=== PATIENT | male | born 1985 ===

== ENCOUNTER → 2020-07-12 16:07 | Outpatient (BNVA) | payer OTHER, SELFPAY | PROVIDERS: Visit Provider Nurse Practitioner Psychiatric/Mental Health | DX: F11.20 Opioid dependence, uncomplicated (principal); F14.90 Cocaine use, unspecified, uncomplicated | CPT/HCPCS: 80305; 99212 ==

== ENCOUNTER → 2020-07-19 16:21 | Outpatient (BNVA) | payer OTHER, SELFPAY | PROVIDERS: Visit Provider Nurse Practitioner Psychiatric/Mental Health | DX: F11.99 Opioid use, unspecified with unspecified opioid-induced disorder (principal) | CPT/HCPCS: 99212 ==

== ENCOUNTER → 2020-07-26 16:26 | Outpatient (BNVA) | payer OTHER, SELFPAY | PROVIDERS: Visit Provider Nurse Practitioner Psychiatric/Mental Health | DX: Z76.89 Persons encountering health services in other specified circumstances (principal) ==

== ENCOUNTER → 2020-08-02 16:23 | Outpatient (BNVA) | payer OTHER, SELFPAY | PROVIDERS: Visit Provider Nurse Practitioner Psychiatric/Mental Health | DX: Z76.89 Persons encountering health services in other specified circumstances (principal) ==

== ENCOUNTER → 2020-08-20 15:38 | Outpatient (BNVA) | payer OTHER, SELFPAY | PROVIDERS: Visit Provider Nurse Practitioner Psychiatric/Mental Health | DX: F11.99 Opioid use, unspecified with unspecified opioid-induced disorder (principal) | CPT/HCPCS: 80305; 99211 ==

== ENCOUNTER → 2020-08-30 16:03 | Outpatient (BNVA) | payer OTHER, SELFPAY | PROVIDERS: Visit Provider Nurse Practitioner Psychiatric/Mental Health | DX: Z76.89 Persons encountering health services in other specified circumstances (principal) ==

== ENCOUNTER → 2020-09-13 16:19 | Outpatient (BNVA) | payer OTHER, SELFPAY | PROVIDERS: Visit Provider Nurse Practitioner Psychiatric/Mental Health | DX: Z76.89 Persons encountering health services in other specified circumstances (principal) ==

== ENCOUNTER 2020-09-26 03:25 | Emergency (ER) | payer OTHER, SELFPAY ==
[2020-09-26 04:03] VITALS: BP 126/93; PULSE 64; RESP 16; TEMP 36.9; O2SAT 98; BMI 21.6
--- NOTE | 2020-09-26 04:11 | ED_ITS ---
HPI - General Adult General Chief complaint: Headache Stated complaint: Congested/Headache Time Seen by Provider: 09/26/20 04:03 Source: patient Mode of arrival: ambulatory Limitations: no limitations History of Present Illness HPI narrative: Patient comes emergency room complaining of a headache and feeling congested since yesterday. Patient denies fever chills, no body aches. Patient requesting a spray for his nose complaint: Congestion Related Data Previous Rx's Medication Instructions Recorded buprenorphine 8 mg-naloxone 2 mg 1 film SUBLINGUAL DAILY #14 ea 09/13/20 sublingual film fluticasone propionate [Aller-Rey] 1 spray INTRANASAL Q12H #9.9 ml 09/26/20 Allergies Allergy/AdvReac Type Severity Reaction Status Date / Time No Known Allergies Allergy Verified 09/26/20 04:03 Review of Systems Review of Systems: Constitutional : No Weight loss, No Fever, No Chills, No Night Sweats, No Fatigue, No Malaise ENT/Mouth : No Hearing loss, No Ear Pain, complaining of Nasal Congestion, No Sinus Pain, No Hoarseness, No sore throat, No Rhinorrhea, No Swallowing Difficulty Eyes: No Eye Pain, No Swelling, No Redness, No Foreign Body, No Discharge, No Vision Changes Cardiovascular : No Chest Pain, No SOB, No Dyspnea on Exertion, No Orthopnea, No Edema, No Palpitations Respiratory : No Cough, No Sputum, No Wheezing, No Smoke Exposure, No Dyspnea Gastrointestinal : No Nausea, No Vomiting, No Diarrhea, No Constipation, No abdominal Pain, No Hematochezia, No Melena Genitourinary : no irregular bleeding, No Dysuria, No Urinary Frequency, No Hematuria, No Urinary Incontinence, No Urgency, No Flank Pain, No Urinary Flow Changes, No Hesitancy Musculoskeletal : No joint pain, No Myalgias, No Joint Swelling Skin : No Skin Lesions, No rash Neuro : No Weakness, No Numbness, No Paresthesias, No Loss of Consciousness, No Dizziness, complaining of Headache Psych : No Anxiety/Panic, No Depression, No SI/HI/AH/VH, No Social Issues, Heme/Lymph: No Bruising, No Bleeding,No Lymphadenopathy Endocrine : No Polyuria, No Polydipsia, No Temperature Intolerance [facility] Past Medical History Medical History (Updated 09/26/20 @ 04:16 by Adelia Ballard MD) Substance abuse Surgical History (Updated 07/09/20 @ 09:21 by MARTIN Gregory) History of nasal surgery Family History Family History (Updated 07/09/20 @ 09:21 by MARTIN Gregory) Father Medical history unknown Mother No problems noted. Physical Exam Vital Signs: Appearance: Alert. Oriented X3. No acute distress. Eyes: Pupils equal, round and reactive to light. Bilateral conjunctivae injection, strong smell of marijuana per staff ENT: Pharynx normal. Patient sounds congested Neck: Normal inspection. Neck supple. No lymph nodes noted. No crepitus CVS: Normal heart rate and rhythm. Pulses normal. Normal S1 and S2 Respiratory: No respiratory distress. Breath sounds normal. No Wheezing. No rales Abdomen: Soft and nontender. No rigidity. No distention. good BS x4 Skin: Skin warm and dry. Normal skin color. Normal skin turgor. Extremities: No lower extremity edema. No lower extremity edema. No Lacerations. No Rash Neuro: Oriented X 3. No motor deficit. No sensory deficit. Moving all extermities. No slurred speech. Course Course Course Narrative: Patient was tested for COVID-19, results pending. Patient will follow-up with his primary care physician. Patient has no fever, not tachycardic. Discharge Plan Discharge Clinical Impression: Congestion of nasal sinus Patient Disposition: Home, Self-Care Instructions: Cold Symptoms (ED) Additional Instructions: You were tested for COVID-19, you will receive a phone call in approximately 72 hours if your results are positive. In the meantime, please stay at home self isolated until you get results. Please follow-up with your primary care physician tomorrow. If you have any worsening or new symptoms, please return to the emergency room or call 911 Prescriptions: New fluticasone propionate [Aller-Rey] 50 mcg/actuation spray,suspension 1 spray intranasal Q12H Qty: 9.9 RF: 0 No Action buprenorphine-naloxone [Suboxone] 8-2 mg film 1 film sublingual DAILY Qty: 14 RF: 0
== END 2020-09-26 04:42 | disposition home or self-care (01) ==
LOC: HO.ED 04:24
PROVIDERS: Emergency Provider Emergency Medicine
DX: R09.81 Nasal congestion (principal); Z20.822 Contact with and (suspected) exposure to COVID-19; F19.10 Other psychoactive substance abuse, uncomplicated; Z79.899 Other long term (current) drug therapy
CPT/HCPCS: 36415; 99283; U0003

== ENCOUNTER → 2020-09-27 15:52 | Outpatient (BNVA) | payer OTHER, SELFPAY | PROVIDERS: Visit Provider Nurse Practitioner Psychiatric/Mental Health | DX: Z76.89 Persons encountering health services in other specified circumstances (principal) ==

== ENCOUNTER → 2020-10-11 17:07 | Outpatient (BNVA) | payer OTHER, SELFPAY | PROVIDERS: Visit Provider Nurse Practitioner Psychiatric/Mental Health | DX: Z13.89 Encounter for screening for other disorder (principal) | CPT/HCPCS: 99212 ==

== ENCOUNTER 2020-10-12 15:23 | Emergency (ER) | payer OTHER, SELFPAY ==
[2020-10-12 15:34] VITALS: BP 119/60; BP 155/93; PULSE 82; PULSE 94; RESP 18; TEMP 36.4; O2SAT 100; O2SAT 99; BMI 22.3
--- NOTE | 2020-10-12 15:38 | XR_ITS ---
EXAMINATION: XR ANKLE, RIGHT CLINICAL INFORMATION: Right ankle pain status post work injury. COMPARISON: None TECHNIQUE: AP, lateral, and mortise views of the right ankle. FINDINGS: There is no acute fracture or dislocation. The ankle joint and mortise are intact. The tarsal bones are normally aligned. A punctate radiopaque density overlies the plantar soft tissues laterally at the level of the anterior calcaneus. XR/XR ankle RT min 3V IMPRESSION: 1. No acute right ankle osseous abnormality. 2. Probable punctate soft tissue radiopaque foreign body in the lateral plantar soft tissues.
--- NOTE | 2020-10-12 15:38 | XR_ITS ---
EXAMINATION: XR FOOT, RIGHT CLINICAL INFORMATION: Right foot pain status post work injury. COMPARISON: None TECHNIQUE: AP, lateral, and oblique views of the right foot. FINDINGS: There is a nondisplaced fracture of the base of the fifth metatarsal. The remainder the digits are intact. The tarsal bones are normally aligned. Several punctate radiopaque densities overlie the plantar soft tissues at the level of the distal metatarsals medially. XR/XR foot RT min 3V IMPRESSION: 1. Acute, nondisplaced fracture of the base of the fifth metatarsal. 2. Punctate radiopaque densities overlying the plantar soft tissues likely represent foreign bodies.
--- NOTE | 2020-10-12 16:44 | ED_ITS ---
HPI - Extremity Injury (Lower) General Chief Complaint: Extremity Injury, Lower Stated Complaint: ankle pain Time Seen by Provider: 10/12/20 15:37 Source: patient and EMS Mode of arrival: EMS Limitations: no limitations History of Present Illness HPI Narrative: 35yoM presenting to the ED via EMS after having a work related injury where he was working and a forklift impacted his right hip making him lose his balance and fall on the floor then the forklift ran over his right ankle/foot and since then has been having pain. Denies any head injury or loss of consciousness or any other injuries complaints or concerns at this time. Related Data Previous Rx's Medication Instructions Recorded fluticasone propionate [Aller-Rey] 1 spray INTRANASAL Q12H #9.9 ml 09/26/20 hydroxyzine HCl 25 mg tablet 25 mg PO BID PRN #30 tab 09/27/20 buprenorphine 8 mg-naloxone 2 mg 1 film SUBLINGUAL DAILY #21 ea 10/11/20 sublingual film acetaminophen [Tylenol Extra 1,000 mg PO QID PRN #14 tab 10/12/20 Strength] ibuprofen 800 mg PO Q8H PRN #14 tab 10/12/20 oxycodone 5 mg PO BID PRN #14 tab 10/12/20 Allergies Allergy/AdvReac Type Severity Reaction Status Date / Time No Known Allergies Allergy Verified 09/26/20 04:03 Review of Systems Review of Systems: Constitutional : No Fever, No Chills ENT/Mouth : No Ear Pain, No Hoarseness, No sore throat Eyes: No Eye Pain, No Swelling, No Redness, No Foreign Body Cardiovascular : No Chest Pain, No SOB Respiratory : No Cough, No Dyspnea Gastrointestinal : No Nausea, No Vomiting, No Diarrhea, No abdominal Pain Genitourinary : No Dysuria, No Hematuria Musculoskeletal : + joint pain/swelling, No Myalgias Skin : No Skin lacerations, No rash Neuro : No Weakness, No Numbness, No Paresthesias, No Loss of Consciousness, No Dizziness, No Headache Psych : No Anxiety/Panic, No Depression Heme/Lymph: no easy bruising, no Lymphadenopathy Endocrine : No Polyuria, No Polydipsia Yes all other systems are reviewed and are negative [facility] Past Medical History Attestation statement: The following information was validated with the patient. Medical History Substance abuse Surgical History History of nasal surgery Family History Family History Father Medical history unknown Mother No problems noted. Social History Social History Alcohol intake: never Smoking Status: Never smoker Use of substances other than those prescribed or required for medical reasons: No Advance Directives: No Advance Directives Information Provided: Yes Physical Exam Vital Signs: Vital Signs: Last Vital Signs Temp 97.5 F 10/12/20 15:34 Pulse 82 10/12/20 15:34 Resp 18 10/12/20 15:34 BP 119/60 10/12/20 15:34 Pulse Ox 100 10/12/20 15:34 Body Mass Index 22.3 vital signs have been reviewed as normal and appeared to be correct. Blood pressure normal. Heart rate normal. Respiration rate normal. Temperature normal. Oxygen saturation normal. Appearance: Alert. Oriented X3. No acute distress. Head: Normal external exam. Normocephalic. Atraumatic. Eyes: PERRLA. EOMI. Conjunctiva and sclera normal. Eyelids normal. ENT: Pharynx normal. Uvula midline. Moist mucous membranes. Neck: Normal inspection. Neck supple. FROM. No adenopathy. Thyroid Normal. No meningeal signs. No neck mass noted. CVS: Normal heart rate and rhythm. Heart sound normal. No murmurs noted. Pulses normal throughout. Respiratory: No respiratory distress. Painless inspiration. Breath sounds normal. No wheezes/rales/rhonchi noted. Chest nontender. No accessory muscle usage noted or decreased air movement noted. Back: Full range of motion noted. Skin: Skin warm and dry. Normal skin color. Normal skin turgor. No rashes/lesions/lacerations noted. Extremities: Patient with moderate tenderness to palpation to right ankle/right foot at the lateral aspect with ecchymosis and abrasion noted. Patient has full range of motion of the ankle. No laxity noted. Moderate tenderness to palpation to the base of the 5th metatarsal. No foreign bodies noted. Achilles tendon within normal limits not ruptured. Otherwise all other Extremities exhibit normal range of motion and nontender. Neuro: Oriented X 3. No motor deficit. No sensory deficit. Reflexes normal. Course Course Course Narrative: 35yoM presenting to the ED via EMS after having a work related injury where he was working and a forklift impacted his right hip making him lose his balance and fall on the floor then the forklift ran over his right ankle/foot and since then has been having pain. - x-ray of right foot revealed acute nondisplaced fracture of the base of the 5th metatarsal. They also reported a Punctate radiopaque densities overlying the plantar soft tissues likely represent foreign bodies. - therefore printed out the x-ray reports and handed to the patient although on exam patient does not have abrasions or any obvious injury where the radial plaque densities are noted patient reports this is probably from when he was younger. - x-ray of right ankle within normal limits no acute processes noted. - will place in a ortho boot provide crutches give 100 mg of Motrin and 5 mg of oxycodone and give a referral to Orthopedics and instructions to return if any new or worsening symptoms along with a work note. Patient understands agrees the plan. Procedures Orthopedic Splinting/Casting Injury #1: Side: right Lower Extremity Injury Location: ankle and foot Lower Extremity Immobilizer: boot orthosis Other Orthopedic Equipment: crutches MDM - Extremity Injury (Lower) Medical Records Attestation: I reviewed the patient's medical records. Imaging Data Right ankle/foot x-ray: Attestation: I personally reviewed and interpreted this imaging study as follows: Radiologist's impression: FINDINGS: There is no acute fracture or dislocation. The ankle joint and mortise are intact. The tarsal bones are normally aligned. A punctate radiopaque density overlies the plantar soft tissues laterally at the level of the anterior calcaneus. XR/XR ankle RT min 3V IMPRESSION: 1. No acute right ankle osseous abnormality. 2. Probable punctate soft tissue radiopaque foreign body in the lateral plantar soft tissues. FINDINGS: There is a nondisplaced fracture of the base of the fifth metatarsal. The remainder the digits are intact. The tarsal bones are normally aligned. Several punctate radiopaque densities overlie the plantar soft tissues at the level of the distal metatarsals medially. XR/XR foot RT min 3V IMPRESSION: 1. Acute, nondisplaced fracture of the base of the fifth metatarsal. 2. Punctate radiopaque densities overlying the plantar soft tissues likely represent foreign bodies. Discharge Plan Discharge Clinical Impression: Ankle sprain and strain, Work related injury Abrasion of ankle Qualifiers: Encounter type: initial encounter Laterality: right Qualified Code(s): S90.511A - Abrasion, right ankle, initial encounter Ankle bruise Qualifiers: Encounter type: initial encounter Laterality: right Qualified Code(s): S90.01XA - Contusion of right ankle, initial encounter Superficial bruising of foot Qualifiers: Encounter type: initial encounter Laterality: right Qualified Code(s): S90.31XA - Contusion of right foot, initial encounter Fracture of fifth metatarsal bone Qualifiers: Encounter type: initial encounter Fracture type: closed Fracture alignment: nondisplaced Laterality: right Qualified Code(s): S92.354A - Nondisplaced fracture of fifth metatarsal bone, right foot, initial encounter for closed fracture Foreign body in foot Qualifiers: Encounter type: initial encounter Laterality: right Qualified Code(s): S90.851A - Superficial foreign body, right foot, initial encounter Patient Disposition: Home, Self-Care Instructions: Crutch Instructions (ED), Foot Fracture in Adults (ED), Walking Boot (ED) Prescriptions: New ibuprofen 800 mg tablet 800 mg PO Q8H PRN (Reason: pain) Qty: 14 RF: 0 acetaminophen [Tylenol Extra Strength] 500 mg tablet 1,000 mg PO QID PRN (Reason: fever or pain) Qty: 14 RF: 0 oxycodone 5 mg tablet 5 mg PO BID PRN (Reason: pain) Qty: 14 RF: 0 No Action hydroxyzine HCl 25 mg tablet 25 mg PO BID PRN (Reason: anxiety) Qty: 30 RF: 1 fluticasone propionate [Aller-Rey] 50 mcg/actuation spray,suspension 1 spray intranasal Q12H Qty: 9.9 RF: 0 buprenorphine-naloxone [Suboxone] 8-2 mg film 1 film sublingual DAILY Qty: 21 RF: 0 Referrals: Jyoti Villalba MD [Physician] - 1 week Stand Alone Forms: Work/School Release Print Language: Nepali
[2020-10-12] MEDS: oxyCODONE HCl Immed Release 5 MG TABLET PO (17:18)
== END 2020-10-12 17:47 | disposition home or self-care (01) ==
PROVIDERS: Emergency Provider Emergency Medicine
DX: S92.354A Nondisplaced fracture of fifth metatarsal bone, right foot, initial encounter for closed fracture (principal); S90.511A Abrasion, right ankle, initial encounter; S90.01XA Contusion of right ankle, initial encounter; S90.31XA Contusion of right foot, initial encounter; S90.851A Superficial foreign body, right foot, initial encounter; M79.671 Pain in right foot; M25.551 Pain in right hip; W31.82XA Contact with other commercial machinery, initial encounter; Y93.89 Activity, other specified; Y92.69 Other specified industrial and construction area as the place of occurrence of the external cause; Y99.0 Civilian activity done for income or pay; Z23 Encounter for immunization; Z79.899 Other long term (current) drug therapy
CPT/HCPCS: 29505; 73610; 73630; 99283; 99284

== ENCOUNTER → 2020-10-16 11:21 | Outpatient (BNVA) | payer OTHER, SELFPAY | PROVIDERS: Visit Provider Physician Assistant | DX: Z13.89 Encounter for screening for other disorder (principal) | CPT/HCPCS: 99202 ==

== ENCOUNTER → 2020-10-23 13:41 | Outpatient (BNVA) | payer OTHER, SELFPAY | PROVIDERS: Visit Provider Physician Assistant | DX: Z13.89 Encounter for screening for other disorder (principal) | CPT/HCPCS: 99212 ==

== ENCOUNTER → 2020-10-30 13:21 | Outpatient (BNVA) | payer OTHER, SELFPAY | PROVIDERS: PCP Internal Medicine; Visit Provider Physician Assistant | DX: Z13.89 Encounter for screening for other disorder (principal) | CPT/HCPCS: 99212 ==

== ENCOUNTER → 2020-11-01 14:39 | Outpatient (BNVA) | payer OTHER, SELFPAY | PROVIDERS: PCP Internal Medicine; Visit Provider Nurse Practitioner Psychiatric/Mental Health | DX: Z79.899 Other long term (current) drug therapy (principal) ==

== ENCOUNTER → 2020-11-06 13:05 | Outpatient (BNVA) | payer OTHER, SELFPAY | PROVIDERS: PCP Internal Medicine; Visit Provider Physician Assistant | DX: Z13.89 Encounter for screening for other disorder (principal) | CPT/HCPCS: 99212 ==

== ENCOUNTER → 2020-11-22 15:09 | Outpatient (BNVA) | payer OTHER, SELFPAY | PROVIDERS: PCP Internal Medicine; Visit Provider Nurse Practitioner Psychiatric/Mental Health | DX: F11.99 Opioid use, unspecified with unspecified opioid-induced disorder (principal); F14.10 Cocaine abuse, uncomplicated | CPT/HCPCS: 80305; 99212 ==

== ENCOUNTER → 2020-11-23 11:32 | Outpatient (BNVA) | payer OTHER, SELFPAY | PROVIDERS: Visit Provider Physician Assistant | DX: S92.351A Displaced fracture of fifth metatarsal bone, right foot, initial encounter for closed fracture (principal); S93.401A Sprain of unspecified ligament of right ankle, initial encounter | CPT/HCPCS: 99212 ==

== ENCOUNTER 2020-12-10 15:00 | Outpatient (RCR) | payer OTHER, SELFPAY ==
--- NOTE | 2020-11-23 15:44 | MHC.PT.EP ---
[facility] [place] Office [place] Office [place] Office [address]uevara [address] [phone] F: [phone] F: [phone] F: [phone] F: [phone] Physical Therapy Plan of Care Date of Evaluation: 11/23/20 Date of Surgery: Diagnosis: RIGHT 5TH METATARSAL FRACTURE Assessment: ASMITA IS A PLEASANT 35 YO MALE WITH CRUSH INJURY TO RIGHT FOOT AT WORK 10/12/20. IMPAIRMENTS INCLUDE DECREASED ROM, STRENGTH, ALTERED GAIT AND BALANCE, INCREASED PAIN. FUNCTIONAL LIMITATIONS INCLUDE DECREASED ABILTIY TO PERFORM WALKING, STAIR CLIMBING, SQUATTING AND STATIC STANDING, DECREASED ABILITY TO PERFORM HOMEMAKING AND SELF CARE TASKS, INABILITY TO PERFORM WORK TASKS AND DISRUPTED SLEEP. Frequency and Duration: The patient will be seen 2 X WEEK FOR 8 WEEKS Short Term Goals: INITATE HEP, PROMOTE SELF MANAGEMENT OF SYMPTOMS [employer] Goals: IN 8 WEEKS WILL DEMONSTRATE NORMALIZED GAIT PATTERN WITHOUT EVIDENCE OF ANTALGIA WILL DEMONSTRATE FULL, PAIN FREE ROM, EQUAL JAZ WILL RTW FT/FD WITH PAIN AT WORST NO GREATER THAN 2/10 WILL TOLERATE AMBULATION AD LESLIE AND MULTIPLE SURFACES Treatment Plan: Modalities to reduce pain, spasms and effusion. Manual therapy to restore motion and function. Therapeutic exercise to improve strength and flexibility. Neuromuscular re-education for posture and balance. Therapeutic activities to return to functional activities of daily living. Electronically signed by: OPAL WANG PT, DPT Please sign and return to therapist. Thank you for your referral.
--- NOTE | 2020-12-28 12:52 | MHC.PT.DC ---
[facility] [place] Office [place] Office [place] Office [address] Jeff Guevara [address] [facility] [phone] F: [phone] F: [phone] F: [phone] F: [phone] Physical Therapy Discharge Report Diagnosis: RIGHT 5TH METATARSAL FRACTURE Date of Surgery: Date of Evaluation: 11/23/20 Date of Discharge: 12/11/20 Treatments to Date: 4 Cancellations to Date: 0 No Shows to Date: 5 Discharge Status: Patient Elected to Stop Visit Non-compliance Discharge Summary: ASMITA HAS NO SHOWED FOR 5 VISITS OF PHYSICAL THERAPY AND IS DISCHARGED AT THIS TIME DUE TO NEW COMPLIANCE Electronically signed by: OPAL WANG PT, DPT Please sign and return to therapist. Thank you for your referral.
== END 2021-01-08 12:32 | disposition other institution (70) ==
LOC: HO.PT 15:00
PROVIDERS: PCP Internal Medicine; Visit Provider Physician Assistant
DX: S93.401A Sprain of unspecified ligament of right ankle, initial encounter (principal); S92.351A Displaced fracture of fifth metatarsal bone, right foot, initial encounter for closed fracture
CPT/HCPCS: 97110; 97112; 97140; 97161; 97530

== ENCOUNTER → 2020-12-20 15:31 | Outpatient (BNVA) | payer OTHER, SELFPAY | PROVIDERS: Visit Provider Nurse Practitioner Psychiatric/Mental Health | DX: Z79.899 Other long term (current) drug therapy (principal) ==

== ENCOUNTER → 2020-12-25 13:13 | Outpatient (BNVA) | payer OTHER, SELFPAY | PROVIDERS: Visit Provider Physician Assistant | DX: S92.351D Displaced fracture of fifth metatarsal bone, right foot, subsequent encounter for fracture with routine healing (principal); S93.401D Sprain of unspecified ligament of right ankle, subsequent encounter; S99.929D Unspecified injury of unspecified foot, subsequent encounter | CPT/HCPCS: 99212 ==

== ENCOUNTER → 2021-01-18 10:00 | Outpatient (BNVA) | payer OTHER, SELFPAY | PROVIDERS: Visit Provider Physician Assistant | DX: S99.929A Unspecified injury of unspecified foot, initial encounter (principal); S92.351A Displaced fracture of fifth metatarsal bone, right foot, initial encounter for closed fracture; S93.401A Sprain of unspecified ligament of right ankle, initial encounter | CPT/HCPCS: 99212 ==

== ENCOUNTER → 2021-01-24 16:07 | Outpatient (BNVA) | payer OTHER, SELFPAY | PROVIDERS: Visit Provider Nurse Practitioner Psychiatric/Mental Health | DX: F11.99 Opioid use, unspecified with unspecified opioid-induced disorder (principal); F14.10 Cocaine abuse, uncomplicated | CPT/HCPCS: 80305; 99212 ==

== ENCOUNTER → 2021-02-07 16:03 | Outpatient (BNVA) | payer OTHER, SELFPAY | PROVIDERS: Visit Provider Nurse Practitioner Psychiatric/Mental Health ==

== ENCOUNTER 2021-02-20 15:55 | Outpatient (REF) | payer OTHER, SELFPAY ==
[2021-02-23 15:46] LABS: Buprenorphine 190 ng/mL; Norbuprenorphine 980 ng/mL
[2021-02-27 08:48] LABS: Fentanyl, Ur NEGATIVE; Norfentanyl, Ur NEGATIVE
== END 2021-02-20 15:56 | disposition home or self-care (01) ==
LOC: HO.LAB 15:55
PROVIDERS: Visit Provider Nurse Practitioner Psychiatric/Mental Health
DX: F14.10 Cocaine abuse, uncomplicated (principal); F11.99 Opioid use, unspecified with unspecified opioid-induced disorder; Z79.899 Other long term (current) drug therapy
CPT/HCPCS: 80305; 80348; 80354; 80364; 80365; 99211

== ENCOUNTER → 2021-02-28 14:56 | Outpatient (BNVA) | payer OTHER, SELFPAY | PROVIDERS: Visit Provider Nurse Practitioner Psychiatric/Mental Health ==

== ENCOUNTER → 2021-03-14 16:29 | Outpatient (BNVA) | payer OTHER, SELFPAY | PROVIDERS: Visit Provider Nurse Practitioner Psychiatric/Mental Health | DX: Z13.89 Encounter for screening for other disorder (principal) | CPT/HCPCS: 80305 ==

== ENCOUNTER → 2021-03-28 16:36 | Outpatient (BNVA) | payer OTHER, SELFPAY | PROVIDERS: Visit Provider Nurse Practitioner Psychiatric/Mental Health ==

== ENCOUNTER → 2021-04-04 16:05 | Outpatient (BNVA) | payer OTHER, SELFPAY | PROVIDERS: Visit Provider Nurse Practitioner Psychiatric/Mental Health | DX: F11.99 Opioid use, unspecified with unspecified opioid-induced disorder (principal); F14.10 Cocaine abuse, uncomplicated | CPT/HCPCS: 80305; 99212 ==

== ENCOUNTER → 2021-04-25 15:53 | Outpatient (BNVA) | payer OTHER, SELFPAY | PROVIDERS: Visit Provider Nurse Practitioner Psychiatric/Mental Health | DX: Z51.81 Encounter for therapeutic drug level monitoring (principal); F11.90 Opioid use, unspecified, uncomplicated; F14.10 Cocaine abuse, uncomplicated | CPT/HCPCS: 80305; 99212 ==

== ENCOUNTER → 2021-05-16 16:26 | Outpatient (BNVA) | payer OTHER, SELFPAY | PROVIDERS: Visit Provider Nurse Practitioner Psychiatric/Mental Health | DX: Z51.81 Encounter for therapeutic drug level monitoring (principal); F11.90 Opioid use, unspecified, uncomplicated; F14.10 Cocaine abuse, uncomplicated | CPT/HCPCS: 80305; 99212 ==

== ENCOUNTER → 2021-06-06 16:13 | Outpatient (BNVA) | payer OTHER, SELFPAY | PROVIDERS: Visit Provider Nurse Practitioner Psychiatric/Mental Health | DX: F11.90 Opioid use, unspecified, uncomplicated (principal); F14.10 Cocaine abuse, uncomplicated | CPT/HCPCS: 80305; 99212 ==

== ENCOUNTER 2021-06-17 20:50 | Emergency (ER) | payer OTHER, SELFPAY | END 2021-06-17 22:47 | disposition left against medical advice (07) | PROVIDERS: Emergency Provider Emergency Medicine; PCP Physician Assistant | DX: R07.81 Pleurodynia (principal) ==

== ENCOUNTER 2021-07-25 14:36 | Outpatient (REF) | payer OTHER, SELFPAY ==
[2021-07-25 14:44] LABS: MANUAL DIFF FLAG NO
[2021-07-25 15:25] LABS: Basophils Percent Auto 0.5 % (0-2); Eosinophils Absolute Auto 0.3 X10*3/uL (0.0-0.4); Eosinophils Percent Auto 4.9 % (0-4); Hematocrit 39.6 % (42.0-52.0); Hemoglobin 13.2 g/dl (14.0-18.0); Imm Gran Abs Auto 0.01 X10*3/uL (0.00-0.03); Imm Gran Pct Auto 0.2 % (0.0-0.4); Lymphocytes Absolute Auto 1.5 X10*3/uL (1.2-4.9); Lymphocytes Percent Auto 26.4 % (20-40); Mean Corpuscular HGB Conc 33.3 g/dl (31.0-36.0); Mean Corpuscular Hemoglobin 30.4 pg (27.0-33.0); Mean Corpuscular Volume 91.2 fL (80.0-98.0); Mean Platelet Volume 8.8 fL (9.4-12.4); Monocytes Absolute Auto 0.4 X10*3/uL (0.1-1.2); Monocytes Percent Auto 6.5 % (2-11); Neutrophils Absolute Auto 3.5 x10*3/uL (2.0-8.3); Neutrophils Percent Auto 61.5 % (45-73); Platelet Count 305 X10*3/uL (160-400); Red Blood Count 4.34 X10*6/uL (4.60-5.80); Red Cell Distribution Width 12.9 % (11.0-16.0); White Blood Count 5.7 X10*3/uL (4.8-10.8)
[2021-07-25 16:06] LABS: Alanine Aminotransferase 11 U/L (0-40); Albumin Level 4.3 g/dL (3.5-5.0); Alkaline Phosphatase 59 U/L (39-117); Anion Gap 9 (12-20); Aspartate Amino Transferase 14 U/L (5-37); Bilirubin Direct 0.2 mg/dL (0.0-0.5); Bilirubin Total 0.4 mg/dL (0.0-1.0); Blood Urea Nitrogen 14 mg/dL (9-16); Calcium 9.8 mg/dL (8.4-10.2); Carbon Dioxide 31 mmol/L (22-29); Chloride 102 mmol/L (96-108); Estimated Glomerular Filt Rate > 60; Glucose Fasting 94 mg/dL (60-99); Potassium 4.2 mmol/L (3.3-5.1); Sodium 138 mmol/L (135-145); Total Protein 6.8 g/dL (6.5-8.0)
[2021-07-26 08:18] LABS: HIV AB/AG Nonreactive (Nonreactive); HIV Num 1 0.06 S/CO (0.00-0.99)
== END 2021-07-25 14:37 | disposition home or self-care (01) ==
LOC: HO.LAB 14:36
PROVIDERS: Absent Provider Nurse Practitioner Family; PCP Internal Medicine; Visit Provider Nurse Practitioner Psychiatric/Mental Health
DX: S92.351A Displaced fracture of fifth metatarsal bone, right foot, initial encounter for closed fracture (principal); F11.99 Opioid use, unspecified with unspecified opioid-induced disorder; F17.210 Nicotine dependence, cigarettes, uncomplicated; Z51.81 Encounter for therapeutic drug level monitoring; Z79.899 Other long term (current) drug therapy
CPT/HCPCS: 36415; 80048; 80076; 80305; 85025; 87389; 99212

== ENCOUNTER → 2021-08-22 15:57 | Outpatient (BNVA) | payer OTHER, SELFPAY | PROVIDERS: PCP Internal Medicine; Visit Provider Nurse Practitioner Psychiatric/Mental Health | DX: F11.20 Opioid dependence, uncomplicated (principal); F14.10 Cocaine abuse, uncomplicated; Z51.81 Encounter for therapeutic drug level monitoring; Z79.899 Other long term (current) drug therapy | CPT/HCPCS: 80305; 99212 ==

== ENCOUNTER → 2021-09-19 16:12 | Outpatient (BNVA) | payer OTHER, SELFPAY | PROVIDERS: PCP Internal Medicine; Visit Provider Nurse Practitioner Psychiatric/Mental Health | DX: Z51.81 Encounter for therapeutic drug level monitoring (principal); F11.20 Opioid dependence, uncomplicated; F14.10 Cocaine abuse, uncomplicated | CPT/HCPCS: 80305; 99212 ==

== ENCOUNTER → 2021-10-24 15:54 | Outpatient (BNVA) | payer OTHER, SELFPAY | PROVIDERS: Visit Provider Nurse Practitioner Psychiatric/Mental Health | DX: Z51.81 Encounter for therapeutic drug level monitoring (principal); F11.20 Opioid dependence, uncomplicated; F14.10 Cocaine abuse, uncomplicated | CPT/HCPCS: 80305; 99212 ==

== ENCOUNTER → 2022-01-02 16:22 | Outpatient (BNVA) | payer OTHER, SELFPAY | PROVIDERS: Visit Provider Nurse Practitioner Psychiatric/Mental Health | DX: F11.20 Opioid dependence, uncomplicated (principal); F14.10 Cocaine abuse, uncomplicated | CPT/HCPCS: 80305; 99212 ==

== ENCOUNTER → 2022-02-14 15:58 | Outpatient (BNVA) | payer OTHER, SELFPAY | PROVIDERS: PCP Internal Medicine; Visit Provider Nurse Practitioner Psychiatric/Mental Health | DX: Z51.81 Encounter for therapeutic drug level monitoring (principal); F11.20 Opioid dependence, uncomplicated | CPT/HCPCS: 80305; 99211 ==

== ENCOUNTER 2022-03-16 06:44 | Emergency (ER) | payer OTHER, SELFPAY ==
[2022-03-16 06:46] VITALS: BP 131/78; PULSE 66; RESP 17; TEMP 37.1; O2SAT 96; BMI 18.8
[2022-03-16 07:09] LABS: Strep A Nucleic Acid Negative (Negative)
[2022-03-16 07:17] LABS: COVID-19 Test Negative (Negative); IDNOW Serial# 16C4AD1C; Influenza A Negative (Negative); Influenza B2 Negative (Negative)
--- NOTE | 2022-03-16 07:17 | PC.NURSE ---
PT HAD FULL BKFST AND COFFEE IN WR.
--- NOTE | 2022-03-16 08:09 | ED.GENADULT ---
HPI - General Adult General Chief complaint: Headache Stated complaint: Sore throat/headache Time Seen by Provider: 03/16/22 08:09 Source: patient Mode of arrival: ambulatory Limitations: no limitations History of Present Illness HPI narrative: 36-year-old male with symptoms of headache and sore throat with cough that produces phlegm that started yesterday. No fevers. Patient is concerned because he is not vaccinated for COVID. Patient has a past medical history of nasal surgery for broken nose. Headache was gradual in onset, no high blood pressure, no fevers. Patient has right-sided sinus pain, worse when he bends down to tie his shoes Sore throat does not radiate into ears, patient can swallow, it is just painful. Patient is not short of breath, no chest pain Related Data Previous Rx's Medication Instructions Recorded fluticasone propionate 50 1 spray intranasal Q12H #9.9 mL 09/26/20 mcg/actuation nasal spray,suspension (Aller-Rey) acetaminophen 500 mg tablet 1,000 mg PO QID PRN fever or pain 10/12/20 (Tylenol Extra Strength) #14 tabs cephalexin 500 mg capsule 500 mg PO BID 10 days #20 caps 10/23/20 silver sulfadiazine 1 % topical 1 appl topical BID PRN wound 10/23/20 cream (Silvadene) healing #50 grams ibuprofen 800 mg tablet 800 mg PO Q8H PRN pain #14 tabs 10/30/20 hydroxyzine HCl 25 mg tablet 25 mg PO BID PRN anxiety #30 tabs 11/22/20 multivit,Ca,min-iron 8 mg-folic 1 tab PO DAILY 2 months #60 tabs 08/22/21 acid 200 mcg-lycopene 600 mcg tablet (Centrum Men) trazodone 50 mg tablet 25 mg PO DAILY #30 tabs 10/24/21 buprenorphine 8 mg-naloxone 2 mg 1 film sublingual DAILY #21 ea 02/13/22 sublingual film amoxicillin 875 mg-potassium 1 tab PO BID 10 days #20 tabs 03/16/22 clavulanate 125 mg tablet ibuprofen 600 mg tablet 600 mg PO Q8H PRN pain #60 tabs 03/16/22 Allergies Allergy/AdvReac Type Severity Reaction Status Date / Time No Known Allergies Allergy Verified 03/16/22 06:45 Review of Systems Constitutional: Constitutional: Denies body ache(s), Denies chills, Denies fatigue, Denies fever(s), Reports headache(s), Denies malaise and Denies weakness Eyes: Eyes: Denies diplopia ENT: Denies vertigo, Denies dizziness, Denies otalgia, Reports headache(s), Denies mouth pain, Denies post nasal drip, Reports sinus pain, Reports sinus pressure, Reports sore throat and Denies throat swelling Cardiovascular: Cardiovascular: Denies chest pain, Denies syncope, Denies leg edema, Denies lightheadedness, Denies Loss of Consciousness, Denies palpitations, Denies dyspnea and Denies dyspnea on exertion Respiratory: Respiratory: Denies chest congestion, Reports cough, Denies pain on inspiration, Denies pain with cough, Denies dyspnea, Denies dyspnea on exertion and Denies wheezing Gastrointestinal: Gastrointestinal: Denies abdominal pain, Denies hematochezia, Denies constipation, Denies diarrhea and Denies vomiting Musculoskeletal: Musculoskeletal: Reports no additional musculoskeletal complaints Neurologic: Denies confusion, Denies vertigo, Denies dizziness, Denies syncope, Reports headache(s) and Denies weakness Psychiatric: Psychiatric: Denies anxiety, Denies confusion and Denies depression Endocrine: Endocrine: Denies fatigue and Denies palpitations Allergic/Immunologic: Allergic/Immunologic: Denies throat swelling and Denies wheezing PMFSH Past Medical History Medical History Hospital discharge follow-up Substance abuse Surgical History History of nasal surgery Family History Family History Father Medical history unknown Mother No problems noted. Social History Social History Alcohol intake: never Cigarettes Per Day: 4 Advance Directives: No Advance Directives Information Provided: No Current occupational status: employed Current occupation: Warehouse - Right Handed Physical Exam ED Vital Signs: Vital Signs - 24 hr 03/16/22 06:46 Temperature 98.7 F Pulse Rate 66 Respiratory Rate 17 Blood Pressure 131/78 Pulse Oximetry 96 Oxygen Delivery Method Room Air BMI result Body Mass Index 18.8 Const General: No confusion Nutritional Appearance: well nourished Orientation/consciousness: No confusion Limitations: no limitations HENMT Head: Yes normal to inspection, Yes normocephalic and Yes atraumatic Ears: hearing grossly normal bilaterally, external ears normal, TM's normal bilaterally and EAC's normal General nose exam: Normal external nose present Face and sinus: Yes normal facial exam and Yes sinus tenderness Mouth: tongue normal, moist mucous membranes and no muffled voice Throat: Yes posterior oropharynx abnormal (Diffuse mild erythema) Eyes Conjunctivae: conjunctivae normal Pupils: Equal, round and reactive pupils present EOM: EOMs intact bilaterally Neck Neck: Yes full ROM, Yes no lymphadenopathy and Yes supple Resp Effort & Inspection: normal respiratory effort and able to speak in complete sentences Auscultation: clear to auscultation bilaterally, no crackles, no rales, no rhonchi and no wheezes Cardio Rate: regular rate Rhythm: regular rhythm Heart sounds: S1 normal heart sound present and S2 normal heart sound present GI Inspection: Yes normal to inspection Palpation (GI): Soft to palpation, nontender, no guarding and not rigid Percussion: Yes normal to percussion Auscultation: normal bowel sounds Skin General skin exam: no rashes or lesions noted Neuro General: No confusion Cranial nerves: Yes Equal, round and reactive pupils present Extrem General: Yes normal to inspection and Yes full ROM Psych Appearance: grossly normal Affect: normal affect Attitude: cooperative Thought process: Normal thought process present Course Course Course Narrative: 36-year-old male presents with cough, sore throat, headache, that started yesterday. Patient endorses sinus symptoms of worsening headache and pressure when he bends down to tie his shoes, patient has stable vitals, is afebrile, but does have right-sided maxillary and frontal tenderness to palpation on his sinuses. Patient has a history of nasal surgery. Patient is COVID negative, flu negative, strep negative, will treat as a sinusitis with Augmentin due to history of nasal surgery, counseled salt water gargles for sore throat, Tylenol, push fluids, gave return precautions. Medical Decision Making Lab Data Labs: Lab Results 03/16/22 03/16/22 03/16/22 Range/Units 06:50 06:50 06:50 COVID-19 ([facility]) Negative (Negative) COVID-19 Clin Com See Note Influenza Type A ([facility]) Negative (Negative) Influenza Type B ([facility]) Negative (Negative) Influenza A & B Note See Note S. pyogenes GrpA [facility] Negative (Negative) Discharge Plan Discharge Clinical Impression: Sinusitis Patient Disposition: Home, Self-Care Additional Instructions: Please take antibiotics as prescribed. Please put 1 tsp of salt in a couple of warm water and gargle, please use ibuprofen, I have also prescribed this to her pharmacy, this will help with your headache and sore throat. If you have any new concerning symptoms please return to the emergency room Prescriptions: New amoxicillin-pot clavulanate 875-125 mg tablet 1 tab PO BID 10 Days Qty: 20 0RF ibuprofen 600 mg tablet 600 mg PO Q8H PRN (Reason: pain) Qty: 60 0RF No Action buprenorphine-naloxone 8-2 mg film 1 film sublingual DAILY Qty: 21 1RF fluticasone propionate [Aller-Rey] 50 mcg/actuation spray,suspension 1 spray intranasal Q12H Qty: 9.9 0RF Rx Instructions: administer into each nostril acetaminophen [Tylenol Extra Strength] 500 mg tablet 1,000 mg PO QID PRN (Reason: fever or pain) Qty: 14 0RF ibuprofen 800 mg tablet 800 mg PO Q8H PRN (Reason: pain) Qty: 14 0RF hydroxyzine HCl 25 mg tablet 25 mg PO BID PRN (Reason: anxiety) Qty: 30 1RF silver sulfadiazine [Silvadene] 1 % cream 1 appl topical BID PRN (Reason: wound healing) Qty: 50 1RF Rx Instructions: apply a 1.5 mm thickness cephalexin 500 mg capsule 500 mg PO BID 10 Days Qty: 20 0RF Centrum Men 8 mg iron- 200 mcg-600 mcg tablet 1 tab PO DAILY 60 Days Qty: 60 0RF trazodone 50 mg tablet 25 mg PO DAILY Qty: 30 1RF Interventions: ED Discharge Assessment Last Done: 03/16/22 09:34 Discharge Date/Time: 03/16/22 09:35
== END 2022-03-16 09:35 | disposition home or self-care (01) ==
PROVIDERS: Emergency Provider Emergency Medicine Emergency Medical Services; PCP Internal Medicine
DX: J32.9 Chronic sinusitis, unspecified (principal); R51.9 Headache, unspecified; R05.9 Cough, unspecified; Z20.822 Contact with and (suspected) exposure to COVID-19; Z79.899 Other long term (current) drug therapy
CPT/HCPCS: 87502; 87635; 87651; 99283

== ENCOUNTER 2022-05-16 01:43 | Emergency (ER) | payer OTHER, SELFPAY ==
[2022-05-16 01:54] VITALS: BMI 19.5
== END 2022-05-16 03:48 | disposition left against medical advice (07) ==
PROVIDERS: Emergency Provider Emergency Medicine; PCP Internal Medicine
DX: R51.9 Headache, unspecified (principal)
CPT/HCPCS: 99281

== ENCOUNTER 2022-08-06 12:00 | Emergency (ER) | payer OTHER, SELFPAY ==
[2022-08-06 12:04] VITALS: BP 126/58; PULSE 79; RESP 20; TEMP 36.7; O2SAT 98; BMI 18.1
--- NOTE | 2022-08-06 12:06 | ED_ITS ---
HPI - General Adult General Chief complaint: Psychiatric Symptoms Stated complaint: Crisis Time Seen by Provider: 08/06/22 12:06 Source: patient Mode of arrival: ambulatory Limitations: no limitations History of Present Illness HPI narrative: Patient is a 37 year old assigned male at with a history of depression and cocaine use presenting to the emergency department today with increased depression and requesting detox. Patient states that he has been more depressed lately and is recently homeless due to his recent break up. Patient denies any dizziness, lightheadedness, abdominal pain, nausea, vomiting, fever, chills, blurry vision, double vision, loss of vision, chest pain, difficulty breathing, shortness of breath, back pain, night sweats, pain with urination, increased urinary frequency, increased urinary urgency, blood in his urine or stool, syncope or a near syncopal episode, recent trauma or falls, bowel incontinence, bladder incontinence, bowel retention, bladder retention, or any other complaints at this time. Patient denies any HI or SI. Onset (ago): day(s) Severity: mild Severity scale (1-10): 2 Relieving factors: none Exacerbating factors: none Associated symptoms: denies other symptoms Treatments prior to arrival: none Related Data Previous Rx's Medication Instructions Recorded fluticasone propionate 50 1 spray intranasal Q12H #9.9 mL 09/26/20 mcg/actuation nasal spray,suspension (Aller-Rey) acetaminophen 500 mg tablet 1,000 mg PO QID PRN fever or pain 10/12/20 (Tylenol Extra Strength) #14 tabs cephalexin 500 mg capsule 500 mg PO BID 10 days #20 caps 10/23/20 silver sulfadiazine 1 % topical 1 appl topical BID PRN wound 10/23/20 cream (Silvadene) healing #50 grams ibuprofen 800 mg tablet 800 mg PO Q8H PRN pain #14 tabs 10/30/20 hydroxyzine HCl 25 mg tablet 25 mg PO BID PRN anxiety #30 tabs 11/22/20 multivit,Ca,min-iron 8 mg-folic 1 tab PO DAILY 2 months #60 tabs 08/22/21 acid 200 mcg-lycopene 600 mcg tablet (Centrum Men) trazodone 50 mg tablet 25 mg PO DAILY #30 tabs 10/24/21 amoxicillin 875 mg-potassium 1 tab PO BID 10 days #20 tabs 03/16/22 clavulanate 125 mg tablet ibuprofen 600 mg tablet 600 mg PO Q8H PRN pain #60 tabs 03/16/22 buprenorphine 8 mg-naloxone 2 mg 1 film sublingual DAILY #8 ea 08/06/22 sublingual film Allergies Allergy/AdvReac Type Severity Reaction Status Date / Time No Known Allergies Allergy Verified 03/16/22 06:45 Review of Systems Constitutional: Constitutional: Reports no additional constitutional complain ts, Denies chills, Denies fever(s) and Denies night sweats Eyes: Eyes: Reports no additional eye complaints, Denies blurry vision, Denies change in vision, Denies diplopia, Denies eye discharge, Denies loss of vision and Denies eye pain ENT: Denies dizziness Cardiovascular: Cardiovascular: Reports no additional cardiovascular complaints, Denies chest pain, Denies lightheadedness, Denies Loss of Consciousness and Denies dyspnea Respiratory: Respiratory: Reports no additional respiratory complaints and De nies dyspnea Gastrointestinal: Gastrointestinal: Reports no additional gastrointestinal complaints, Denies abdominal pain, Denies melena, Denies hematochezia, Denies change in bowel habits and Denies change in stool character Genitourinary: Genitourinary: Reports no additional male genitourinary complaints, Denies hematuria, Denies oliguria, Denies difficulty urinating, Denies dysuria, Denies urinary frequency, Denies urinary hesitancy, Denies urinary incontinence and Denies urinary urgency Musculoskeletal: Musculoskeletal: Reports no additional musculoskeletal complaints, Denies numbness and Denies tingling Neurologic: Denies dizziness, Denies loss of vision, Denies numbness and Denies tingling Psychiatric: Psychiatric: Reports no additional psychiatric complaints, Reports depression, Denies homicidal ideation and Denies suicidal ideation Endocrine: Endocrine: Reports no additional endocrine complaints Hematologic/Lymphatic: Hematologic/Lymphatic: Reports no additional hematologic/lymphatic complaints Allergic/Immunologic: Allergic/Immunologic: Reports no additional allergic /immunologic complaints PMFSH Past Medical History Attestation statement: The following information was validated with the patient. Source: old records reviewed Medical History Hospital discharge follow-up Substance abuse Surgical History History of nasal surgery Family History Family History Father Medical history unknown Mother No problems noted. Social History Social History Alcohol intake: never Cigarettes Per Day: 4 Advance Directives: No Advance Directives Information Provided: Yes Current occupational status: employed Current occupation: Warehouse - Right Handed Physical Exam ED Vital Signs: Vital Signs - 24 hr 08/06/22 12:04 Temperature 98.0 F Pulse Rate 79 Respiratory Rate 20 Blood Pressure 126/58 L Pulse Oximetry 98 Oxygen Delivery Method Room Air BMI result Body Mass Index 18.1 Const General: cooperative, no acute distress, alert and awake Nutritional Appearance: well nourished Orientation/consciousness: patient oriented x3 Limitations: no limitations HENMT Head: Yes normal to inspection and Yes atraumatic Ears: hearing grossly normal bilaterally and external ears normal General nose exam: Normal external nose present, no nasal discharge noted and no epistaxis Face and sinus: Yes normal facial exam, No abrasion and No laceration Mouth: Normal oral and palatal mucosa present, no drooling and no muffled voice Eyes General: appearance normal, both eyes and all related structures Periorbital: periorbital findings normal Eyelids: Yes eyelids normal Conjunctivae: conjunctivae normal Pupils: Equal, round and reactive pupils present EOM: EOMs intact bilaterally Neck Neck: Yes normal visual inspection, Yes full ROM and Yes no lymphadenopathy Chest Chest palpation & inspection: normal inspection of the chest Resp Effort & Inspection: normal respiratory effort and able to speak in complete sentences Auscultation: clear to auscultation bilaterally Cardio Rate: regular rate Rhythm: regular rhythm GI Inspection: Yes normal to inspection Neuro General: patient oriented x3 and moves all extremities Cranial nerves: Yes Equal, round and reactive pupils present Cognition (Neuro): normal cognition Motor exam (neuro): 5/5 motor strength present throughout Sensory Exam: Normal double simultaneous stimulation for sensation Coordination: [id number] test normal Extrem General: Yes normal to inspection, Yes full ROM and Yes capillary refill normal Psych Appearance: grossly normal Mental Status: mental status grossly normal Affect: normal affect Attitude: cooperative Thought process: Normal thought process present Thought content: Normal thought content present, suicidality and no homicidality Insight: Good insight present (Psych) Medical Decision Making MDM Narrative Medical decision making narrative: Patient is a 37 year old assigned male at with a history of depression and cocaine use presenting to the emergency department today with worsening depression and requesting detox. Patient's physical exam was unremarkable. Patient's blood work was unremarkable. I explained my physical exam findings as well as all test results to the patient. I answered all questions asked by the patient. Patient was evaluated by crisis who recommended the patient be discharged. I stressed the importance of the patient taking his medication as prescribed. I stressed the importance of the patient following up with his primary care provider. I stressed the importance of the patient returning to the emergency department immediately if his symptoms were to worsen or if he were to develop any dizziness, shortness of breath, difficulty breathing, chest pain, b lurry vision, loss of vision, nausea, vomiting, abdominal pain, fever, chills, back pain, or any other complaints. Patient verbalized agreement and understanding with this treatment plan and discharge. Medical Records Medical records reviewed: Yes I reviewed the patient's medical records. Lab Data Lab results reviewed: Yes I reviewed the patient's lab results. Result diagrams: 08/06/22 12:48 08/06/22 12:48 Labs: Lab Results 08/06/22 08/06/22 08/06/22 Range/Units 12:28 12:28 12:48 WBC 7.6 (4.8-10.8) X10*3/uL RBC 4.48 L (4.60-5.80) X10*6/uL Hgb 13.2 L (14.0-18.0) g/dl Hct 39.8 L (42.0-52.0) % MCV 88.8 (80.0-98.0) fL MCH 29.5 (27.0-33.0) pg MCHC 33.2 (31.0-36.0) g/dl RDW 12.3 (11.0-16.0) % Plt Count 340 (160-400) X10*3/uL MPV 8.6 L (9.4-12.4) fL Immature Gran % (Auto) 0.3 (0.0-0.4) % Neut % (Auto) 47.8 (45-73) % Lymph % (Auto) 32.9 (20-40) % Traverse % (Auto) 7.6 (2-11) % Eos % (Auto) 10.5 H (0-4) % Baso % (Auto) 0.9 (0-2) % Lymph # (Auto) 2.5 (1.2-4.9) X10*3/uL Traverse # (Auto) 0.6 (0.1-1.2) X10*3/uL Eos # (Auto) 0.8 H (0.0-0.4) X10*3/uL Baso # (Auto) 0.1 (0.0-0.2) X10*3/uL Abs Immat Gran (auto) 0.02 (0.00-0.03) X10*3/uL Absolute Neuts (auto) 3.6 (2.0-8.3) x10*3/uL Absolute Nucleated RBC 0.000 (0.0-0.012) X10*3/uL Nucleated RBC % (auto) 0.0 (0.0-0.2) /100WBC Sodium (135-145) mmol/L Potassium (3.3-5.1) mmol/L Chloride (96-108) mmol/L Carbon Dioxide (22-29) mmol/L Anion Gap (12-20) BUN (9-16) mg/dL Creatinine (0.5-1.4) mg/dL Estim Creat Clear Calc Estimated GFR Random Glucose (60-115) mg/dL Calcium (8.4-10.2) mg/dL Total Bilirubin (0.0-1.0) mg/dL AST (5-37) U/L ALT (0-40) U/L Alkaline Phosphatase (39-117) U/L Total Protein (6.5-8.0) g/dL Albumin (3.5-5.0) g/dL Salicylates (15-30) mg/dL Urine Opiates Screen Not Detected (Not Detect) Urine Fentanyl Screen Not Detected (Not Detect) Acetaminophen (<30) mcg/mL Ur Barbiturates Screen Not Detected (Not Detect) Ur Phencyclidine Scrn Not Detected (Not Detect) Ur Amphetamines Screen Not Detected (Not Detect) U Benzodiazepines Scrn Not Detected (Not Detect) Urine Cocaine Screen POSITIVE H (Not Detect) U Marijuana (THC) Screen Not Detected (Not Detect) Ethyl Alcohol mg/dL COVID-19 ([facility]) Negative (Negative) COVID-19 Clin Com See Note 08/06/22 Range/Units 12:48 WBC (4.8-10.8) X10*3/uL RBC (4.60-5.80) X10*6/uL Hgb (14.0-18.0) g/dl Hct (42.0-52.0) % MCV (80.0-98.0) fL MCH (27.0-33.0) pg MCHC (31.0-36.0) g/dl RDW (11.0-16.0) % Plt Count (160-400) X10*3/uL MPV (9.4-12.4) fL Immature Gran % (Auto) (0.0-0.4) % Neut % (Auto) (45-73) % Lymph % (Auto) (20-40) % Traverse % (Auto) (2-11) % Eos % (Auto) (0-4) % Baso % (Auto) (0-2) % Lymph # (Auto) (1.2-4.9) X10*3/uL Traverse # (Auto) (0.1-1.2) X10*3/uL Eos # (Auto) (0.0-0.4) X10*3/uL Baso # (Auto) (0.0-0.2) X10*3/uL Abs Immat Gran (auto) (0.00-0.03) X10*3/uL Absolute Neuts (auto) (2.0-8.3) x10*3/uL Absolute Nucleated RBC (0.0-0.012) X10*3/uL Nucleated RBC % (auto) (0.0-0.2) /100WBC Sodium 141 (135-145) mmol/L Potassium 4.1 (3.3-5.1) mmol/L Chloride 104 (96-108) mmol/L Carbon Dioxide 28 (22-29) mmol/L Anion Gap 13 (12-20) BUN 18 H (9-16) mg/dL Creatinine 0.78 (0.5-1.4) mg/dL Estim Creat Clear Calc 107.0 Estimated GFR > 60 Random Glucose 106 (60-115) mg/dL Calcium 9.5 (8.4-10.2) mg/dL Total Bilirubin 0.3 (0.0-1.0) mg/dL AST 20 D (5-37) U/L ALT 13 (0-40) U/L Alkaline Phosphatase 68 (39-117) U/L Total Protein 7.3 (6.5-8.0) g/dL Albumin 4.5 (3.5-5.0) g/dL Salicylates < 5.0 L (15-30) mg/dL Urine Opiates Screen (Not Detect) Urine Fentanyl Screen (Not Detect) Acetaminophen < 1 (<30) mcg/mL Ur Barbiturates Screen (Not Detect) Ur Phencyclidine Scrn (Not Detect) Ur Amphetamines Screen (Not Detect) U Benzodiazepines Scrn (Not Detect) Urine Cocaine Screen (Not Detect) U Marijuana (THC) Screen (Not Detect) Ethyl Alcohol < 10 mg/dL COVID-19 ([facility]) (Negative) COVID-19 Clin Com Discharge Plan Discharge Clinical Impression: Depression Patient Disposition: Home, Self-Care Instructions: Depression (ED) Additional Instructions: Follow up with your primary care provider. Return to the emergency department immediately if your symptoms worsen or if you develop any dizziness, shortness of breath, difficulty breathing, chest pain, blurry vision, loss of vision, nausea, vomiting, abdominal pain, fever, chills, back pain, or any other complaints. Prescriptions: No Action buprenorphine-naloxone 8-2 mg film 1 film sublingual DAILY Qty: 8 0RF fluticasone propionate [Aller-Rey] 50 mcg/actuation spray,suspension 1 spray intranasal Q12H Qty: 9.9 0RF Rx Instructions: administer into each nostril acetaminophen [Tylenol Extra Strength] 500 mg tablet 1,000 mg PO QID PRN (Reason: fever or pain) Qty: 14 0RF amoxicillin-pot clavulanate 875-125 mg tablet 1 tab PO BID 10 Days Qty: 20 0RF ibuprofen 600 mg tablet 600 mg PO Q8H PRN (Reason: pain) Qty: 60 0RF ibuprofen 800 mg tablet 800 mg PO Q8H PRN (Reason: pain) Qty: 14 0RF hydroxyzine HCl 25 mg tablet 25 mg PO BID PRN (Reason: anxiety) Qty: 30 1RF silver sulfadiazine [Silvadene] 1 % cream 1 appl topical BID PRN (Reason: wound healing) Qty: 50 1RF Rx Instructions: apply a 1.5 mm thickness cephalexin 500 mg capsule 500 mg PO BID 10 Days Qty: 20 0RF Centrum Men 8 mg iron- 200 mcg-600 mcg tablet 1 tab PO DAILY 60 Days Qty: 60 0RF trazodone 50 mg tablet 25 mg PO DAILY Qty: 30 1RF Referrals: Jenn Zamarripa MD [Primary Care Provider] - Interventions: [place]-Suicide Risk Severity Scale Last Done: 08/06/22 13:37 ED Discharge Assessment Last Done: 08/06/22 13:36 Discharge Date/Time: 08/06/22 13:40 Print Language: Macedonian
[2022-08-06 12:47] LABS: Amphetamine Screen Urine Not Detected (Not Detect); Barbiturates, Urine Not Detected (Not Detect); Benzodiazepines Screen Urine Not Detected (Not Detect); Cannabinoid Screen Urine Not Detected (Not Detect); Cocaine Screen Urine POSITIVE (Not Detect); Fentanyl, urine Not Detected (Not Detect); Opiate Screen Urine Not Detected (Not Detect); Phencyclidine Screen Urine Not Detected (Not Detect)
[2022-08-06 12:49] LABS: COVID-19 Test Negative (Negative); IDNOW Serial# 16C4AD1C
[2022-08-06 12:53] LABS: MANUAL DIFF FLAG NO
[2022-08-06 12:54] LABS: Basophils Absolute Auto 0.1 X10*3/uL (0.0-0.2); Basophils Percent Auto 0.9 % (0-2); Eosinophils Absolute Auto 0.8 X10*3/uL (0.0-0.4); Eosinophils Percent Auto 10.5 % (0-4); Hematocrit 39.8 % (42.0-52.0); Hemoglobin 13.2 g/dl (14.0-18.0); Imm Gran Abs Auto 0.02 X10*3/uL (0.00-0.03); Imm Gran Pct Auto 0.3 % (0.0-0.4); Lymphocytes Absolute Auto 2.5 X10*3/uL (1.2-4.9); Lymphocytes Percent Auto 32.9 % (20-40); Mean Corpuscular HGB Conc 33.2 g/dl (31.0-36.0); Mean Corpuscular Hemoglobin 29.5 pg (27.0-33.0); Mean Corpuscular Volume 88.8 fL (80.0-98.0); Mean Platelet Volume 8.6 fL (9.4-12.4); Monocytes Absolute Auto 0.6 X10*3/uL (0.1-1.2); Monocytes Percent Auto 7.6 % (2-11); Neutrophils Absolute Auto 3.6 x10*3/uL (2.0-8.3); Neutrophils Percent Auto 47.8 % (45-73); Platelet Count 340 X10*3/uL (160-400); Red Blood Count 4.48 X10*6/uL (4.60-5.80); Red Cell Distribution Width 12.3 % (11.0-16.0); White Blood Count 7.6 X10*3/uL (4.8-10.8)
[2022-08-06 13:10] LABS: Acetaminophen LAB < 1 mcg/mL (<30); Alanine Aminotransferase 13 U/L (0-40); Albumin Level 4.5 g/dL (3.5-5.0); Alkaline Phosphatase 68 U/L (39-117); Anion Gap 13 (12-20); Aspartate Amino Transferase 20 U/L (5-37); Bilirubin Total 0.3 mg/dL (0.0-1.0); Blood Urea Nitrogen 18 mg/dL (9-16); Calcium 9.5 mg/dL (8.4-10.2); Carbon Dioxide 28 mmol/L (22-29); Chloride 104 mmol/L (96-108); Estimated Glomerular Filt Rate > 60; Ethanol < 10 mg/dL; Glucose Random 106 mg/dL (60-115); Potassium 4.1 mmol/L (3.3-5.1); Salicylate < 5.0 mg/dL (15-30); Sodium 141 mmol/L (135-145); Total Protein 7.3 g/dL (6.5-8.0)
--- NOTE | 2022-08-06 13:46 | MHC.CARE ---
Care Team met with pt in [facility] who was walked down due to presented to [facility] with complaints of depression, family problems, and weight loss. Pt denied SI/HI/AVH. Pt stated he had a verbal altercation with his girlfriend Meagan Reyes, which also is the mother of his children Mala Kern (8) and Enmanuel Kern (19). Pt reported he is homeless as he left his girlfriends home and does not work. He stated he has a verbal altercation with his girlfriend because she believes he does other drugs besides cocaine and alcohol on a daily basis. He self advocated for detox bed search. Care Team met with pt's sister Cher Tinajero . She reported no concerns with pt returning home as he is staying with her at the moment. Care Team provided a list of detox and coordinated an intake with [facility].
== END 2022-08-06 13:40 | disposition home or self-care (01) ==
PROVIDERS: Physician Assistant Medical; Emergency Provider Student in an Organized Health Care Education/Training Program; PCP Internal Medicine
DX: F33.1 Major depressive disorder, recurrent, moderate (principal); Z79.899 Other long term (current) drug therapy; Z20.822 Contact with and (suspected) exposure to COVID-19
CPT/HCPCS: 80053; 80143; 80179; 80307; 82077; 85025; 87635; 99212; 99283

== ENCOUNTER → 2022-10-21 14:15 | Outpatient (BNVA) | payer OTHER, SELFPAY | PROVIDERS: PCP Internal Medicine; Visit Provider Nurse Practitioner Psychiatric/Mental Health | DX: F11.20 Opioid dependence, uncomplicated (principal); F14.10 Cocaine abuse, uncomplicated | CPT/HCPCS: 80305; 99212 ==

== ENCOUNTER → 2022-11-04 13:30 | Outpatient (BNVA) | payer OTHER, SELFPAY | PROVIDERS: PCP Internal Medicine; Visit Provider Nurse Practitioner Psychiatric/Mental Health | DX: Z51.81 Encounter for therapeutic drug level monitoring (principal); F11.20 Opioid dependence, uncomplicated; F14.10 Cocaine abuse, uncomplicated | CPT/HCPCS: 80305; 99212 ==

== ENCOUNTER → 2022-11-11 15:16 | Outpatient (BNVA) | payer OTHER, SELFPAY | PROVIDERS: Visit Provider Nurse Practitioner Psychiatric/Mental Health | DX: Z51.81 Encounter for therapeutic drug level monitoring (principal); F11.20 Opioid dependence, uncomplicated; F14.10 Cocaine abuse, uncomplicated | CPT/HCPCS: 80305; 99212 ==

== ENCOUNTER 2022-12-29 15:25 | Emergency (ER) | payer OTHER, SELFPAY ==
[2022-12-29 15:36] VITALS: BP 131/80; PULSE 70; O2SAT 97
[2022-12-29 15:52] VITALS: BP 97/59; PULSE 55; RESP 16; O2SAT 98; BMI 19.5
[2022-12-29 17:03] LABS: MANUAL DIFF FLAG NO
--- NOTE | 2022-12-29 17:04 | ED_ITS ---
HPI - Psych General Chief Complaint: Psychiatric Symptoms Stated Complaint: SI HI Time Seen by Provider: 12/29/22 16:11 Source: patient Mode of arrival: ambulatory Limitations: no limitations History of Present Illness HPI Narrative: 37-year-old male presents with passive suicidal ideation, depression anxiety. Patient expressed that he has been present throughout his entire life. He is feeling depressed and anxious. He does use opioid drugs. He last used 2-3 days ago. He has had some suicidal ideation but denies any plan. He has no active SI. He is actually requesting help. There is no clear relieving or exacerbating features. Patient does describe his symptoms as quite severe. Patient says he had a remote history of psychiatric evaluation. He is currently not taking any medications Related Data Previous Rx's Medication Instructions Recorded fluticasone propionate 50 1 spray intranasal Q12H #9.9 mL 09/26/20 mcg/actuation nasal spray,suspension (Aller-Rey) acetaminophen 500 mg tablet 1,000 mg PO QID PRN fever or pain 10/12/20 (Tylenol Extra Strength) #14 tabs cephalexin 500 mg capsule 500 mg PO BID 10 days #20 caps 10/23/20 silver sulfadiazine 1 % topical 1 appl topical BID PRN wound 10/23/20 cream (Silvadene) healing #50 grams ibuprofen 800 mg tablet 800 mg PO Q8H PRN pain #14 tabs 10/30/20 hydroxyzine HCl 25 mg tablet 25 mg PO BID PRN anxiety #30 tabs 11/22/20 multivit,Ca,min-iron 8 mg-folic 1 tab PO DAILY 2 months #60 tabs 08/22/21 acid 200 mcg-lycopene 600 mcg tablet (Centrum Men) amoxicillin 875 mg-potassium 1 tab PO BID 10 days #20 tabs 03/16/22 clavulanate 125 mg tablet ibuprofen 600 mg tablet 600 mg PO Q8H PRN pain #60 tabs 03/16/22 trazodone 50 mg tablet 25 mg PO DAILY #30 tabs 10/21/22 buprenorphine 8 mg-naloxone 2 mg 1 film sublingual DAILY #8 ea 11/11/22 sublingual film naloxone 4 mg/actuation nasal spray 4 mg intranasal Q2M PRN opioid 11/11/22 overdose #2 ea topiramate 25 mg tablet 25 mg PO DAILY #7 tabs 11/11/22 Allergies Allergy/AdvReac Type Severity Reaction Status Date / Time No Known Allergies Allergy Verified 12/29/22 15:55 [facility] Past Medical History Medical History Hospital discharge follow-up Substance abuse Surgical History History of nasal surgery Family History Family History Father Medical history unknown Mother No problems noted. Social History Social History Alcohol intake: never Cigarettes Per Day: 4 Smoked in Last 30 Days: No Advance Directives: No Advance Directives Information Provided: Yes Current occupational status: employed Current occupation: [employer] - Right Handed Physical Exam Vital Signs: Vital Signs: Last Vital Signs Temp 97.0 F 12/29/22 19:31 Pulse 58 12/29/22 19:31 Resp 16 12/29/22 19:31 BP 94/47 L 12/29/22 19:31 Pulse Ox 100 12/29/22 19:31 O2 Del Method Room Air 12/29/22 19:31 BMI result Body Mass Index 19.5 GEN: Well developed, no acute distress, alert, oriented HEENT: Normocephalic, atraumatic, normal external ears, nose appears normal Eyes: Normal to appearance Neck: Supple, no lymphadenopathy Respiratory: Talks in complete sentences, no respiratory distress Extremities: No clubbing cyanosis or edema Neurologic: No focal neurologic deficits, cranial nerves 2-12 intact, gait normal Skin: No rash Psych: Expressions of depression, anxiety, passive SI, no plan Course Course Course Narrative: 37-year-old male with history of opioid abuse presents with depression and anxiety requesting psychiatric evaluation. Patient did express some SI but he says that is gone at this time. He has no plan. Patient is, cooperative at this time. He does admit to using opioid analgesics. Last use was approximately 2-3 days ago. Routine laboratory analysis, crisis evaluation has been ordered at this time. Reevaluation(s) Reevaluation #1: Medically cleared for psychiatric evaluation Time: 18:09 Reevaluation #2: patient has been evaluated Does not want detox, no SI or HI, no threat to self or others. PAtient to be discharged at this time, Time: 21:29 Medical Decision Making Medical Decision Making [facility] Narrative: 37-year-old male presents for psychiatric evaluation. He offers depression, anxiety, opioid use disorder. Patient did have SI but no active SI at this time. He denies HI. Differential Diagnosis Differential Diagnoses: The differential diagnosis associated with the presentation includes (Depression, anxiety, substance abuse, PTSD, adjustment disorder, mood disorder) Admission/Observation Consideration of admission/observation: Escalation of care including admission/o bservation considered Consult Healthcare Provider Management of the patient was discussed with: Behavioral Health Provider Lab Data [facility] Lab Attestation statement: I reviewed the patient's lab results. 12/29/22 16:59 12/29/22 16:59 Labs: Lab Results 12/29/22 12/29/22 12/29/22 Range/Units 16:59 16:59 20:26 WBC 7.6 (4.8-10.8) X10*3/uL RBC 4.18 L (4.60-5.80) X10*6/uL Hgb 12.5 L (14.0-18.0) g/dl Hct 38.1 L (42.0-52.0) % MCV 91.1 (80.0-98.0) fL MCH 29.9 (27.0-33.0) pg MCHC 32.8 (31.0-36.0) g/dl RDW 13.3 (11.0-16.0) % Plt Count 262 (160-400) X10*3/uL MPV 8.8 L (9.4-12.4) fL Immature Gran % (Auto) 0.1 (0.0-0.4) % Neut % (Auto) 48.1 (45-73) % Lymph % (Auto) 32.6 (20-40) % [place] % (Auto) 7.5 (2-11) % Eos % (Auto) 10.9 H (0-4) % Baso % (Auto) 0.8 (0-2) % Lymph # (Auto) 2.5 (1.2-4.9) X10*3/uL [place] # (Auto) 0.6 (0.1-1.2) X10*3/uL Eos # (Auto) 0.8 H (0.0-0.4) X10*3/uL Baso # (Auto) 0.1 (0.0-0.2) X10*3/uL Abs Immat Gran (auto) 0.01 (0.00-0.03) X10*3/uL Absolute Neuts (auto) 3.7 (2.0-8.3) x10*3/uL Absolute Nucleated RBC 0.000 (0.0-0.012) X10*3/uL Nucleated RBC % (auto) 0.0 (0.0-0.2) /100WBC Sodium 140 (135-145) mmol/L Potassium 3.6 (3.3-5.1) mmol/L Chloride 103 (96-108) mmol/L Carbon Dioxide 33 H (22-29) mmol/L Anion Gap 10 L (12-20) BUN 16 (9-16) mg/dL Creatinine 0.78 (0.5-1.4) mg/dL Estim Creat Clear Calc 115.3 Estimated GFR > 60 Random Glucose 151 H (60-115) mg/dL Calcium 8.9 D (8.4-10.2) mg/dL Total Bilirubin 0.4 (0.0-1.0) mg/dL AST 20 (5-37) U/L ALT 12 (0-40) U/L Alkaline Phosphatase 56 (39-117) U/L Total Protein 6.2 L (6.5-8.0) g/dL Albumin 4.1 (3.5-5.0) g/dL Urine Color Dark Yellow Urine Appearance Clear Urine pH 6.5 (5.0-9.0) Ur Specific [place] 1.025 (1.005-1.025) Urine Protein Trace (Neg-Trace) mg/dL Urine Glucose (UA) Negative (Negative) mg/dL Urine Ketones Negative (Negative) mg/dL Urine Blood Negative (Negative) Urine Nitrite Negative (Negative) Ur Leukocyte Esterase Trace H (Negative) Urine RBC 3-5 H (0-2) /HPF Urine WBC 6-10 H (0-5) /HPF Ur Squamous Epith Cells 0-2 (0-2) /HPF Urine Bacteria None Seen (None Seen) Hyaline Casts 0-2 (0-2) /LPF Salicylates < 5.0 L (15-30) mg/dL Urine Opiates Screen (Not Detect) Urine Fentanyl Screen (Not Detect) Acetaminophen < 17 (<30) mcg/mL Ur Barbiturates Screen (Not Detect) Ur Phencyclidine Scrn (Not Detect) Ur Amphetamines Screen (Not Detect) U Benzodiazepines Scrn (Not Detect) Urine Cocaine Screen (Not Detect) U Marijuana (THC) Screen (Not Detect) Ethyl Alcohol < 10 mg/dL 12/29/22 Range/Units 20:26 WBC (4.8-10.8) X10*3/uL RBC (4.60-5.80) X10*6/uL Hgb (14.0-18.0) g/dl Hct (42.0-52.0) % MCV (80.0-98.0) fL MCH (27.0-33.0) pg MCHC (31.0-36.0) g/dl RDW (11.0-16.0) % Plt Count (160-400) X10*3/uL MPV (9.4-12.4) fL Immature Gran % (Auto) (0.0-0.4) % Neut % (Auto) (45-73) % Lymph % (Auto) (20-40) % [place] % (Auto) (2-11) % Eos % (Auto) (0-4) % Baso % (Auto) (0-2) % Lymph # (Auto) (1.2-4.9) X10*3/uL [place] # (Auto) (0.1-1.2) X10*3/uL Eos # (Auto) (0.0-0.4) X10*3/uL Baso # (Auto) (0.0-0.2) X10*3/uL Abs Immat Gran (auto) (0.00-0.03) X10*3/uL Absolute Neuts (auto) (2.0-8.3) x10*3/uL Absolute Nucleated RBC (0.0-0.012) X10*3/uL Nucleated RBC % (auto) (0.0-0.2) /100WBC Sodium (135-145) mmol/L Potassium (3.3-5.1) mmol/L Chloride (96-108) mmol/L Carbon Dioxide (22-29) mmol/L Anion Gap (12-20) BUN (9-16) mg/dL Creatinine (0.5-1.4) mg/dL Estim Creat Clear Calc Estimated GFR Random Glucose (60-115) mg/dL Calcium (8.4-10.2) mg/dL Total Bilirubin (0.0-1.0) mg/dL AST (5-37) U/L ALT (0-40) U/L Alkaline Phosphatase (39-117) U/L Total Protein (6.5-8.0) g/dL Albumin (3.5-5.0) g/dL Urine Color Urine Appearance Urine pH (5.0-9.0) Ur Specific [place] (1.005-1.025) Urine Protein (Neg-Trace) mg/dL Urine Glucose (UA) (Negative) mg/dL Urine Ketones (Negative) mg/dL Urine Blood (Negative) Urine Nitrite (Negative) Ur Leukocyte Esterase (Negative) Urine RBC (0-2) /HPF Urine WBC (0-5) /HPF Ur Squamous Epith Cells (0-2) /HPF Urine Bacteria (None Seen) Hyaline Casts (0-2) /LPF Salicylates (15-30) mg/dL Urine Opiates Screen POSITIVE H (Not Detect) Urine Fentanyl Screen POSITIVE H (Not Detect) Acetaminophen (<30) mcg/mL Ur Barbiturates Screen Not Detected (Not Detect) Ur Phencyclidine Scrn Not Detected (Not Detect) Ur Amphetamines Screen Not Detected (Not Detect) U Benzodiazepines Scrn Not Detected (Not Detect) Urine Cocaine Screen POSITIVE H (Not Detect) U Marijuana (THC) Screen Not Detected (Not Detect) Ethyl Alcohol mg/dL Prescription Management I considered prescription management with: Other (Anxiety medications) Discharge Plan Discharge Clinical Impression: Depression, Substance abuse Patient Disposition: Home, Self-Care Instructions: Depression (ED), Polysubstance Abuse (ED) Prescriptions: No Action fluticasone propionate [Aller-Rey] 50 mcg/actuation spray,suspension 1 spray intranasal Q12H Qty: 9.9 0RF Rx Instructions: administer into each nostril acetaminophen [Tylenol Extra Strength] 500 mg tablet 1,000 mg PO QID PRN (Reason: fever or pain) Qty: 14 0RF amoxicillin-pot clavulanate 875-125 mg tablet 1 tab PO BID 10 Days Qty: 20 0RF ibuprofen 600 mg tablet 600 mg PO Q8H PRN (Reason: pain) Qty: 60 0RF ibuprofen 800 mg tablet 800 mg PO Q8H PRN (Reason: pain) Qty: 14 0RF hydroxyzine HCl 25 mg tablet 25 mg PO BID PRN (Reason: anxiety) Qty: 30 1RF silver sulfadiazine [Silvadene] 1 % cream 1 appl topical BID PRN (Reason: wound healing) Qty: 50 1RF Rx Instructions: apply a 1.5 mm thickness cephalexin 500 mg capsule 500 mg PO BID 10 Days Qty: 20 0RF Centrum Men 8 mg iron- 200 mcg-600 mcg tablet 1 tab PO DAILY 60 Days Qty: 60 0RF topiramate 25 mg tablet 25 mg PO DAILY Qty: 7 0RF buprenorphine-naloxone 8-2 mg film 1 film sublingual DAILY Qty: 8 0RF naloxone 4 mg/actuation spray,non-aerosol 4 mg intranasal Q2M PRN (Reason: opioid overdose) Qty: 2 0RF Rx Instructions: spray 1 dose into ONE nostril; alternate nostrils w each dose until help arrives trazodone 50 mg tablet 25 mg PO DAILY Qty: 30 0RF Referrals: Jenn Zamarripa MD [Primary Care Provider] - 2 days Interventions: [place]-Suicide Risk Severity Scale Last Done: 12/29/22 16:01
[2022-12-29 17:05] LABS: Basophils Absolute Auto 0.1 X10*3/uL (0.0-0.2); Basophils Percent Auto 0.8 % (0-2); Eosinophils Absolute Auto 0.8 X10*3/uL (0.0-0.4); Eosinophils Percent Auto 10.9 % (0-4); Hematocrit 38.1 % (42.0-52.0); Hemoglobin 12.5 g/dl (14.0-18.0); Imm Gran Abs Auto 0.01 X10*3/uL (0.00-0.03); Imm Gran Pct Auto 0.1 % (0.0-0.4); Lymphocytes Absolute Auto 2.5 X10*3/uL (1.2-4.9); Lymphocytes Percent Auto 32.6 % (20-40); Mean Corpuscular HGB Conc 32.8 g/dl (31.0-36.0); Mean Corpuscular Hemoglobin 29.9 pg (27.0-33.0); Mean Corpuscular Volume 91.1 fL (80.0-98.0); Mean Platelet Volume 8.8 fL (9.4-12.4); Monocytes Absolute Auto 0.6 X10*3/uL (0.1-1.2); Monocytes Percent Auto 7.5 % (2-11); Neutrophils Absolute Auto 3.7 x10*3/uL (2.0-8.3); Neutrophils Percent Auto 48.1 % (45-73); Platelet Count 262 X10*3/uL (160-400); Red Blood Count 4.18 X10*6/uL (4.60-5.80); Red Cell Distribution Width 13.3 % (11.0-16.0); White Blood Count 7.6 X10*3/uL (4.8-10.8)
[2022-12-29 17:30] LABS: Alanine Aminotransferase 12 U/L (0-40); Albumin Level 4.1 g/dL (3.5-5.0); Alkaline Phosphatase 56 U/L (39-117); Aspartate Amino Transferase 20 U/L (5-37); Bilirubin Total 0.4 mg/dL (0.0-1.0); Blood Urea Nitrogen 16 mg/dL (9-16); Calcium 8.9 mg/dL (8.4-10.2); Carbon Dioxide 33 mmol/L (22-29); Chloride 103 mmol/L (96-108); Creatinine Clr Calc Pharmacy 115.3; Estimated Glomerular Filt Rate > 60; Ethanol < 10 mg/dL; Glucose Random 151 mg/dL (60-115); Potassium 3.6 mmol/L (3.3-5.1); Sodium 140 mmol/L (135-145); Total Protein 6.2 g/dL (6.5-8.0)
[2022-12-29 17:49] LABS: Acetaminophen LAB < 17 mcg/mL (<30); Anion Gap 10 (12-20); Salicylate < 5.0 mg/dL (15-30)
[2022-12-29 19:31] VITALS: BP 94/47; PULSE 58; RESP 16; TEMP 36.1; O2SAT 100
[2022-12-29 20:33] LABS: Appearance Urine Clear; Color Urine Dark Yellow; Glucose Urine UA Negative (Negative); Leukocyte Esterase Urine Trace (Negative); Nitrite Urine Negative (Negative); PH 6.5 (5.0-9.0); Specific Gravity - Urine 1.025 (1.005-1.025); UMIC TRIGGER UA YES; Urine Blood Negative (Negative); Urine Ketones Negative (Negative); Urine Protein Trace mg/dL (Neg-Trace)
[2022-12-29 20:35] LABS: Bacteria Urine None Seen (None Seen); Hyaline Casts Urine 0-2 /LPF (0-2); Squamous Epithelial Cell Urine 0-2 /HPF (0-2)
[2022-12-29 20:41] LABS: Cannabinoid Screen Urine Not Detected (Not Detect); Fentanyl, urine POSITIVE (Not Detect); Opiate Screen Urine POSITIVE (Not Detect)
[2022-12-29 20:44] LABS: Amphetamine Screen Urine Not Detected (Not Detect); Barbiturates, Urine Not Detected (Not Detect); Benzodiazepines Screen Urine Not Detected (Not Detect); Cocaine Screen Urine POSITIVE (Not Detect); Phencyclidine Screen Urine Not Detected (Not Detect)
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
== END 2022-12-29 22:56 | disposition home or self-care (01) ==
PROVIDERS: Emergency Provider Emergency Medicine; PCP Internal Medicine
DX: F32.A Depression, unspecified (principal); R45.851 Suicidal ideations; F19.10 Other psychoactive substance abuse, uncomplicated; F41.9 Anxiety disorder, unspecified; F11.20 Opioid dependence, uncomplicated; Z79.899 Other long term (current) drug therapy
CPT/HCPCS: 36415; 80053; 80143; 80179; 80307; 81001; 82077; 85025; 99284; 99285; S9485

== ENCOUNTER 2023-01-27 03:50 | Emergency (ER) | payer OTHER, SELFPAY ==
[2023-01-27 03:54] VITALS: BP 119/57; BP 136/80; PULSE 56; PULSE 60; RESP 16; TEMP 36.4; O2SAT 97; BMI 19.5
[2023-01-27 04:00] VITALS: BP 119/57; PULSE 56; RESP 16; TEMP 36.4; O2SAT 97
--- NOTE | 2023-01-27 04:11 | PC.NURSE ---
c/o SI with a plan plans to cut his wrists states he is having relationship issues no apparent distress calm/cooperative aox4
--- NOTE | 2023-01-27 04:18 | PC.NURSE ---
sitter at bedside initiated at triage
--- NOTE | 2023-01-27 04:20 | ED_ITS ---
HPI - Psych General Chief Complaint: Psychiatric Symptoms Stated Complaint: SI W/NO PLAN PER EMS Time Seen by Provider: 01/27/23 04:20 Source: patient Mode of arrival: EMS Limitations: no limitations History of Present Illness HPI Narrative: Patient depression substance abuse increased stress at home with relationships using cocaine and heroin complaining of nasal congestion also for long time and getting worse SI with a plan to cut himself , not on any medication for depression Related Data Previous Rx's Medication Instructions Recorded fluticasone propionate 50 1 spray intranasal Q12H #9.9 mL 09/26/20 mcg/actuation nasal spray,suspension (Aller-Rey) acetaminophen 500 mg tablet 1,000 mg PO QID PRN fever or pain 10/12/20 (Tylenol Extra Strength) #14 tabs cephalexin 500 mg capsule 500 mg PO BID 10 days #20 caps 10/23/20 silver sulfadiazine 1 % topical 1 appl topical BID PRN wound 10/23/20 cream (Silvadene) healing #50 grams ibuprofen 800 mg tablet 800 mg PO Q8H PRN pain #14 tabs 10/30/20 hydroxyzine HCl 25 mg tablet 25 mg PO BID PRN anxiety #30 tabs 11/22/20 multivit,Ca,min-iron 8 mg-folic 1 tab PO DAILY 2 months #60 tabs 08/22/21 acid 200 mcg-lycopene 600 mcg tablet (Centrum Men) amoxicillin 875 mg-potassium 1 tab PO BID 10 days #20 tabs 03/16/22 clavulanate 125 mg tablet ibuprofen 600 mg tablet 600 mg PO Q8H PRN pain #60 tabs 03/16/22 trazodone 50 mg tablet 25 mg PO DAILY #30 tabs 10/21/22 buprenorphine 8 mg-naloxone 2 mg 1 film sublingual DAILY #8 ea 11/11/22 sublingual film naloxone 4 mg/actuation nasal spray 4 mg intranasal Q2M PRN opioid 11/11/22 overdose #2 ea topiramate 25 mg tablet 25 mg PO DAILY #7 tabs 11/11/22 Allergies Allergy/AdvReac Type Severity Reaction Status Date / Time No Known Allergies Allergy Verified 12/29/22 15:55 Review of Systems Review of Systems: Yes all other systems are reviewed and are negative PMFSH Past Medical History Medical History Hospital discharge follow-up Substance abuse Surgical History History of nasal surgery Family History Family History Father Medical history unknown Mother No problems noted. Social History Social History Alcohol intake: unknown Cigarettes Per Day: 4 Smoked in Last 30 Days: No Use of substances other than those prescribed or required for medical reasons: Yes Substance Use Type: Crack/Cocaine and Heroin Last Used Substance: Just Prior to Admission Advance Directives: No Advance Directives Information Provided: Yes Current occupational status: employed Current occupation: [employer] - Right Handed Physical Exam Vital Signs: Vital Signs: Last Vital Signs Temp 98.0 F 01/27/23 04:50 Pulse 79 01/27/23 04:50 Resp 16 01/27/23 04:50 BP 127/79 01/27/23 04:50 Pulse Ox 97 01/27/23 04:50 O2 Del Method Room Air 01/27/23 04:50 BMI result Body Mass Index 19.5 Appearance: Alert. Oriented X3. No acute distress. Eyes: PERRLA, No Nystagmus ENT: Pharynx normal. Oral Mucosa moist nasal congestion+ inflammation of the sinuses++ Neck: Normal inspection. Neck supple. CVS: Normal heart rate and rhythm. Pulses normal. Respiratory: No respiratory distress. Equal air entry bilateral, no wheezing/rales/rhonchi Abdomen: Soft and nontender. Bowel sounds are present, no mass palpable, no CVA tenderness Skin: Skin warm and dry. Normal skin color. Normal skin turgor. Extremities: No lower extremity edema. No calf tenderness psych: Depressed with SI no hallucinations or delusions Neuro: Oriented X 3. No motor deficit. No sensory deficit.No cerebellar signs , cranial nerves II-XII intact Medications Administered Discontinued Medications Generic Name Dose Route Start Last Admin Trade Name Freq PRN Reason Stop Dose Admin Amoxicillin/Clavulanate Potassium 875 mg 01/27/23 04:29 01/27/23 04:45 Amoxicillin/Potassium Clav 875 Mg Tablet PO 01/27/23 04:30 875 mg ONCE ONE Administration Medical Decision Making Medical Decision Making MDM Narrative: Patient with polysubstance abuse with depression with suicidal feelings will get care team involved for evaluation Lab Data MDM Lab Attestation statement: I reviewed the patient's lab results. Labs: Lab Results 01/27/23 Range/Units 04:38 COVID-19 ([place]) Negative (Negative) COVID-19 Clin Com See Note Discharge Plan Discharge Clinical Impression: Depression with suicidal ideation, Polysubstance abuse Prescriptions: No Action fluticasone propionate [Aller-Rey] 50 mcg/actuation spray,suspension 1 spray intranasal Q12H Qty: 9.9 0RF Rx Instructions: administer into each nostril acetaminophen [Tylenol Extra Strength] 500 mg tablet 1,000 mg PO QID PRN (Reason: fever or pain) Qty: 14 0RF amoxicillin-pot clavulanate 875-125 mg tablet 1 tab PO BID 10 Days Qty: 20 0RF ibuprofen 600 mg tablet 600 mg PO Q8H PRN (Reason: pain) Qty: 60 0RF ibuprofen 800 mg tablet 800 mg PO Q8H PRN (Reason: pain) Qty: 14 0RF hydroxyzine HCl 25 mg tablet 25 mg PO BID PRN (Reason: anxiety) Qty: 30 1RF silver sulfadiazine [Silvadene] 1 % cream 1 appl topical BID PRN (Reason: wound healing) Qty: 50 1RF Rx Instructions: apply a 1.5 mm thickness cephalexin 500 mg capsule 500 mg PO BID 10 Days Qty: 20 0RF Centrum Men 8 mg iron- 200 mcg-600 mcg tablet 1 tab PO DAILY 60 Days Qty: 60 0RF topiramate 25 mg tablet 25 mg PO DAILY Qty: 7 0RF buprenorphine-naloxone 8-2 mg film 1 film sublingual DAILY Qty: 8 0RF naloxone 4 mg/actuation spray,non-aerosol 4 mg intranasal Q2M PRN (Reason: opioid overdose) Qty: 2 0RF Rx Instructions: spray 1 dose into ONE nostril; alternate nostrils w each dose until help arrives trazodone 50 mg tablet 25 mg PO DAILY Qty: 30 0RF Interventions: [place]-Suicide Risk Severity Scale Last Done: 01/27/23 03:54
[2023-01-27 04:34] VITALS: BP 119/57; PULSE 56; RESP 16; TEMP 36.4; O2SAT 97
[2023-01-27] MEDS: Amoxicillin/Potassium Clav 875 MG TABLET PO (04:45)
--- NOTE | 2023-01-27 04:49 | PC.NURSE ---
Pt ca&ox3. No signs of distress. Pt denies chest pain and sob. Pt medicated per mar. Will continue to monitor.
[2023-01-27 04:50] VITALS: BP 127/79; PULSE 79; RESP 16; TEMP 36.7; O2SAT 97
[2023-01-27 05:04] LABS: COVID-19 Test Negative (Negative); IDNOW Serial# 6674DD1D
[2023-01-27 07:44] LABS: MANUAL DIFF FLAG NO
[2023-01-27 07:47] LABS: Basophils Percent Auto 0.4 % (0-2); Eosinophils Absolute Auto 0.8 X10*3/uL (0.0-0.4); Eosinophils Percent Auto 6.9 % (0-4); Hematocrit 39.8 % (42.0-52.0); Hemoglobin 13.3 g/dl (14.0-18.0); Imm Gran Abs Auto 0.04 X10*3/uL (0.00-0.03); Imm Gran Pct Auto 0.4 % (0.0-0.4); Lymphocytes Percent Auto 35.5 % (20-40); Mean Corpuscular HGB Conc 33.4 g/dl (31.0-36.0); Mean Corpuscular Hemoglobin 30.6 pg (27.0-33.0); Mean Corpuscular Volume 91.7 fL (80.0-98.0); Monocytes Percent Auto 9.2 % (2-11); Neutrophils Absolute Auto 5.4 x10*3/uL (2.0-8.3); Neutrophils Percent Auto 47.6 % (45-73); Platelet Count 281 X10*3/uL (160-400); Red Blood Count 4.34 X10*6/uL (4.60-5.80); Red Cell Distribution Width 13.2 % (11.0-16.0); White Blood Count 11.3 X10*3/uL (4.8-10.8)
[2023-01-27 07:56] LABS: Amphetamine Screen Urine Not Detected (Not Detect); Barbiturates, Urine Not Detected (Not Detect); Benzodiazepines Screen Urine Not Detected (Not Detect); Cannabinoid Screen Urine POSITIVE (Not Detect); Cocaine Screen Urine POSITIVE (Not Detect); Fentanyl, urine POSITIVE (Not Detect); Opiate Screen Urine POSITIVE (Not Detect); Phencyclidine Screen Urine Not Detected (Not Detect)
[2023-01-27 08:00] LABS: Anion Gap 11 (12-20); Blood Urea Nitrogen 16 mg/dL (9-16); Calcium 9.1 mg/dL (8.4-10.2); Carbon Dioxide 28 mmol/L (22-29); Chloride 104 mmol/L (96-108); Creatinine Clr Calc Pharmacy 124.9; Estimated Glomerular Filt Rate > 60; Glucose Random 89 mg/dL (60-115); Sodium 139 mmol/L (135-145)
[2023-01-27 13:49] VITALS: BP 105/62; PULSE 49; RESP 20; TEMP 36.7; O2SAT 97
[2023-01-27 16:08] VITALS: BP 122/70; PULSE 54; RESP 18; O2SAT 98
== END 2023-01-27 16:30 | disposition home or self-care (01) ==
PROVIDERS: Emergency Provider Internal Medicine
DX: F32.A Depression, unspecified (principal); R45.851 Suicidal ideations; F19.10 Other psychoactive substance abuse, uncomplicated; Z20.822 Contact with and (suspected) exposure to COVID-19; Z79.899 Other long term (current) drug therapy
CPT/HCPCS: 36415; 80048; 80307; 85025; 87635; 99285; S9485

== ENCOUNTER 2023-03-13 04:48 | Emergency (ER) | payer OTHER, SELFPAY ==
--- NOTE | ~2023-03-13 | US_ITS ---
EXAMINATION: US SCROTUM US SCROTUM DOPPLER CLINICAL INFORMATION: Injury. Pain and swelling. Evaluate for testicular rupture. Trauma to left inguinal area.. COMPARISON: None available. TECHNIQUE: A sonogram of the scrotum was performed assessing stephenson-scale appearance and color Doppler flow. Spectral Doppler analysis of the arterial and venous flow were performed in the testes bilaterally. FINDINGS: Testicles have normal size, contour and echotexture. No testicular microlithiasis or mass. No evidence of testicular rupture. The right testicle is 2.7 x 4.9 x 2.7 cm and left testicle 2.8 x 2.3 x 2.8 cm. Color Doppler images with spectral waveforms show presence of normal symmetric arterial and venous flow within the testicles. Trace amount of fluid is present within the scrotal sac. No hematoma. The right and left epididymis are normal in size. Incidentally noted is a small 0.5 cm cyst of the left epididymal head. The visualized scrotal veins are in the normal size range. US/US scrotum IMPRESSION: No evidence of testicular rupture. No acute sonographic abnormalities within the scrotum.
--- NOTE | ~2023-03-13 | CT_ITS ---
EXAMINATION: CT PELVIS WITH CONTRAST CLINICAL INFORMATION: Trauma to left inguinal area. Evaluate for active extravasation. COMPARISON: Scrotal ultrasound from 03/13/2023 TECHNIQUE: Multidetector CT imaging examination the pelvis is performed. Axial images are presented at 0.6 mm and 5 mm slice thickness. Examination was done with intravenous administration of 85 mL Omnipaque 350. No contrast reaction reported. This CT examination was performed using dose optimization techniques as appropriate, variously including the following: *Automated exposure control *Adjustment of mA and/or kV according to patient size (this includes techniques or standardized protocols for targeted exams where dose is matched to indication/reason for exam; i.e. extremities or head) *Use of iterative reconstruction technique DLP: 1 or 92 mGy-cm FINDINGS: No dilated loops of bowel within the included [id number]. Moderate amount of fecal material within the colon. The appendix is normal. No pelvic free fluid or free air. Urinary bladder and prostate gland are unremarkable. No lymphadenopathy. A hematoma of heterogeneous attenuation in the left inguinal region measures 3.7 x 3.3 x 3.5 cm. The central aspect of the hematoma has attenuation of 55 Hounsfield units. The hematoma is anterior to the left common femoral vessels, which have normal morphology, and the hematoma is not surrounding the vessels. The heterogeneity of the hematoma is thought to be due to varying density of blood products with presence some hyperdense hemorrhage as well as edema in the tissue. There is no overt active arterial contrast extravasation. However, bleeding in soft tissue from a superficial venous injury would be possible. Note that this is not a multiphase CT exam (i.e., there is no noncontrast, arterial phase and venous phase imaging of the groin). Pelvic bones are normal. Pubic symphysis and sacroiliac joints are normal. Alignment is normal at each hip. CT/CT pelvis w IV con IMPRESSION: A heterogeneous hematoma in the left inguinal region is located anterior to the left common femoral vessels. Note that this is not an angiography examination and no noncontrast images were obtained. There is no overt arterial extravasation into the hematoma. There is no osseous injury.
--- NOTE | ~2023-03-13 | US_ITS ---
EXAMINATION: US SCROTUM US SCROTUM DOPPLER CLINICAL INFORMATION: Injury. Pain and swelling. Evaluate for testicular rupture. Trauma to left inguinal area.. COMPARISON: None available. TECHNIQUE: A sonogram of the scrotum was performed assessing stephenson-scale appearance and color Doppler flow. Spectral Doppler analysis of the arterial and venous flow were performed in the testes bilaterally. FINDINGS: Testicles have normal size, contour and echotexture. No testicular microlithiasis or mass. No evidence of testicular rupture. The right testicle is 2.7 x 4.9 x 2.7 cm and left testicle 2.8 x 2.3 x 2.8 cm. Color Doppler images with spectral waveforms show presence of normal symmetric arterial and venous flow within the testicles. Trace amount of fluid is present within the scrotal sac. No hematoma. The right and left epididymis are normal in size. Incidentally noted is a small 0.5 cm cyst of the left epididymal head. The visualized scrotal veins are in the normal size range. US/US scrotum doppler IMPRESSION: No evidence of testicular rupture. No acute sonographic abnormalities within the scrotum.
[2023-03-13 04:53] VITALS: BP 113/71; PULSE 70; RESP 18; TEMP 36.6; O2SAT 100; BMI 19.5
[2023-03-13 05:36] VITALS: BP 114/64; PULSE 60; RESP 17; TEMP 36.9; O2SAT 97
[2023-03-13 05:47] VITALS: BP 114/64; PULSE 60; RESP 17; TEMP 36.9; O2SAT 97
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
[2023-03-13 07:38] LABS: MANUAL DIFF FLAG NO
[2023-03-13 07:41] LABS: Basophils Absolute Auto 0.1 X10*3/uL (0.0-0.2); Basophils Percent Auto 0.8 % (0-2); Eosinophils Absolute Auto 0.8 X10*3/uL (0.0-0.4); Eosinophils Percent Auto 7.6 % (0-4); Hematocrit 36.1 % (42.0-52.0); Hemoglobin 12.3 g/dl (14.0-18.0); Imm Gran Abs Auto 0.02 X10*3/uL (0.00-0.03); Imm Gran Pct Auto 0.2 % (0.0-0.4); Lymphocytes Absolute Auto 3.9 X10*3/uL (1.2-4.9); Lymphocytes Percent Auto 39.2 % (20-40); Mean Corpuscular HGB Conc 34.1 g/dl (31.0-36.0); Mean Corpuscular Hemoglobin 30.2 pg (27.0-33.0); Mean Corpuscular Volume 88.7 fL (80.0-98.0); Mean Platelet Volume 8.3 fL (9.4-12.4); Monocytes Absolute Auto 0.9 X10*3/uL (0.1-1.2); Monocytes Percent Auto 9.2 % (2-11); Neutrophils Absolute Auto 4.3 x10*3/uL (2.0-8.3); Platelet Count 272 X10*3/uL (160-400); Red Blood Count 4.07 X10*6/uL (4.60-5.80); Red Cell Distribution Width 12.5 % (11.0-16.0); White Blood Count 10.1 X10*3/uL (4.8-10.8)
[2023-03-13 07:46] LABS: INTERNATIONAL NORM RATIO 1.1 (0.9-1.1)
[2023-03-13 07:49] LABS: Partial Thromboplastin Time 34.5 SEC (26.0-36.4)
[2023-03-13 07:52] LABS: Appearance Urine Clear; Color Urine Yellow; Glucose Urine UA Negative (Negative); Leukocyte Esterase Urine Negative (Negative); Nitrite Urine Negative (Negative); Specific Gravity - Urine >= 1.030 (1.005-1.025); Urine Blood Negative (Negative); Urine Ketones Negative (Negative); Urine Protein Trace mg/dL (Neg-Trace)
[2023-03-13 07:59] LABS: Alanine Aminotransferase 11 U/L (0-40); Albumin Level 3.9 g/dL (3.5-5.0); Alkaline Phosphatase 59 U/L (39-117); Anion Gap 11 (12-20); Aspartate Amino Transferase 22 U/L (5-37); Bilirubin Direct 0.2 mg/dL (0.0-0.5); Bilirubin Total 0.4 mg/dL (0.0-1.0); Blood Urea Nitrogen 17 mg/dL (9-16); Calcium 9.5 mg/dL (8.4-10.2); Carbon Dioxide 27 mmol/L (22-29); Chloride 105 mmol/L (96-108); Creatinine Clr Calc Pharmacy 138.4; Estimated Glomerular Filt Rate > 60; Glucose Random 91 mg/dL (60-115); Potassium 3.7 mmol/L (3.3-5.1); Sodium 139 mmol/L (135-145); Total Protein 6.7 g/dL (6.5-8.0)
--- NOTE | 2023-03-13 08:15 | PC.NURSE ---
pt found to be eating breakfast, catscan to be delayed 3 hours to rule out an abcess
[2023-03-13] MEDS: iohexoL 350 MG/ML 100 ML INFUS..BTL 85 ML IV (09:51)
--- NOTE | 2023-03-13 11:15 | PC.NURSE ---
pt resting quietly in bed, resp equal and unlabored.
[2023-03-13 11:28] VITALS: BP 94/46; PULSE 57; RESP 16; TEMP 36.7; O2SAT 97
== END 2023-03-13 11:49 | disposition home or self-care (01) ==
PROVIDERS: Emergency Medicine; Emergency Provider Emergency Medicine Emergency Medical Services; PCP Internal Medicine
DX: S30.22XA Contusion of scrotum and testes, initial encounter (principal); V18.0XXA Pedal cycle driver injured in noncollision transport accident in nontraffic accident, initial encounter; N50.812 Left testicular pain; D64.9 Anemia, unspecified; F17.210 Nicotine dependence, cigarettes, uncomplicated; F19.10 Other psychoactive substance abuse, uncomplicated; Y93.55 Activity, bike riding; Y92.414 Local residential or business street as the place of occurrence of the external cause; Y99.9 Unspecified external cause status
CPT/HCPCS: 36415; 72193; 76870; 80048; 80076; 81003; 85025; 85610; 85730; 93975; 99284; Q9967

== ENCOUNTER 2023-09-14 04:37 | Emergency (ER) | payer OTHER, SELFPAY ==
[2023-09-14 04:51] VITALS: BP 124/70; PULSE 70; RESP 15; TEMP 36.9; O2SAT 98; BMI 20.9
== END 2023-09-14 06:36 | disposition left against medical advice (07) ==
PROVIDERS: Emergency Provider Emergency Medicine
DX: S61.211A Laceration without foreign body of left index finger without damage to nail, initial encounter (principal); W29.8XXA Contact with other powered hand tools and household machinery, initial encounter; Y93.9 Activity, unspecified; Y92.9 Unspecified place or not applicable; Y99.9 Unspecified external cause status
CPT/HCPCS: 99281

== ENCOUNTER 2024-01-12 14:48 | Outpatient (AMB) | payer OTHER, SELFPAY ==
--- NOTE | 2024-01-12 14:43 | A.OFFVISCC_ITS ---
Vital Signs 01/12/24 14:51 BP 130/78 Blood Pressure Location Lt brachial Position Sitting Pulse 67 Pulse Source Pulse Oximeter Pulse Oximetry (%) 96 Oxygen Delivery Method Room Air Intake Visit Reasons: Intake Allergies No Known Allergies Allergy (Verified 01/12/24 14:44) HPI HPI Intake: Details: Patient presents to re-establish care Was a previous pt of [facility], has not been seen in a year Reports he relapsed after his shot wore off Recently completed detox over a month ago at a treatment center in [facility] he completed CSS and is now stepping down to a sober living facility in [facility] He was told he needed to establish care with a clinic prior to arrival He has been taking 8mg suboxone BID with good effect Denies cravings or withdrawal symptoms States he has narcan, and does not need when offered by T/w He would like to continue the films, he did not feel as though the injection worked for him His plan is to resume with the [facility] when he has finished treatment in [facility] Medical History Hospital discharge follow-up Substance abuse Surgical History History of nasal surgery Family History Father Medical history unknown Mother No problems noted. Social History Alcohol intake: unknown Cigarettes Per Day: 4 Substance Use Type: Crack/Cocaine and Heroin Current occupational status: employed Current occupation: Warehouse - Right Handed Review of Systems Const Reports as per HPI Physical Exam Vital Signs: Last Vital Signs Pulse 67 01/12/24 14:51 BP 130/78 01/12/24 14:51 Pulse Ox 96 01/12/24 14:51 Oxygen Delivery Method Room Air 01/12/24 14:51 Const General: cooperative and no acute distress Resp Effort & Inspection: normal respiratory effort and able to speak in complete sentences Psych Appearance: grossly normal Mental Status: mental status grossly normal Speech and movement: Normal speech and movement present Affect: normal affect Attitude: cooperative Thought process: Normal thought process present Results AMB 14 Panel Urine Drug Screen Urine Marijuana (THC) Negative Last Edit by Sabina Reardon CMA on 01/12/24 14 :58 Urine Cocaine Negative Last Edit by Sabina Reardon CMA on 01/12/24 14:58 Urine Morphine Negative Last Edit by Sabina Reardon CMA on 01/12/24 14:58 Urine Methamphetamine Negative Last Edit by Sabina Reardon CMA on 01/12/24 14 :58 Urine Amphetamine Negative Last Edit by Sabina Reardon CMA on 01/12/24 14:58 Urine Benzodiazepine Negative Last Edit by Sabina Reardon CMA on 01/12/24 14: 58 Urine Barbiturates Negative Last Edit by Sabina Reardon CMA on 01/12/24 14:58 Urine Methadone Negative Last Edit by Sabina Reardon CMA on 01/12/24 14:58 Urine Buprenorphine Positive Last Edit by Sabina Reardon CMA on 01/12/24 14:5 8 Urine Tricyclic Antidepressant Negative Last Edit by Sabina Reardon CMA on 01/12/24 14:58 Urine MDMA Negative Last Edit by Sabina Reardon CMA on 01/12/24 14:58 Urine Oxycodone Negative Last Edit by Sabina Reardon CMA on 01/12/24 14:58 Urine Phencyclidine Negative Last Edit by Sabina Reardon CMA on 01/12/24 14:5 8 Urine Propoxyphene Negative Last Edit by Sabina Reardon CMA on 01/12/24 14:58 Results Reviewed Results Reviewed: Laboratory Last Values POC Urine Buprenorphine Positive 01/12/24 14:52 POC Urine Morphine Negative 01/12/24 14:52 POC Urine Oxycodone Negative 01/12/24 14:52 POC Urine Methadone Negative 01/12/24 14:52 POC Urine Propoxyphene Negative 01/12/24 14:52 POC Urine Barbiturates Negative 01/12/24 14:52 POC U Tricyclic Antidpr Negative 01/12/24 14:52 POC Urine PCP Negative 01/12/24 14:52 POC Ur Amphetamines Negative 01/12/24 14:52 POC Ur Methamphetamine Negative 01/12/24 14:52 POC Urine MDMA Negative 01/12/24 14:52 POC Ur Benzodiazepine Negative 01/12/24 14:52 POC Urine Cocaine Negative 01/12/24 14:52 POC Ur Marijuana (THC) Negative 01/12/24 14:52 Assessment & Plan Assessment & Plan (1) Opioid use disorder: Code(s): F11.99 - Opioid use, unspecified with unspecified opioid-induced disorder Category: Medical Plan: -Reviewed [place] pat -Suboxone filled at 8mg BID -Provided patient with contact information to provide his sober living facility staff Orders: Orders AMB 14 Panel Urine Drug Screen 01/12/24 Z51.81 - Encounter for therapeutic drug level monitoring Medications: Changed From buprenorphine-naloxone 8-2 mg 1 film sublingual DAILY 8 ea 0RF To buprenorphine-naloxone 8-2 mg 1 film sublingual BID 60 ea 0RF
[2024-01-12 14:51] VITALS: BP 130/78; PULSE 67; O2SAT 96
== END 2024-01-12 15:09 | disposition home or self-care (01) ==
PROVIDERS: Visit Provider Nurse Practitioner Family
DX: F11.99 Opioid use, unspecified with unspecified opioid-induced disorder (principal)
CPT/HCPCS: 99214

== ENCOUNTER → 2024-01-12 14:48 | Outpatient (BNVA) | payer OTHER, SELFPAY | PROVIDERS: Visit Provider Nurse Practitioner Family | DX: Z51.81 Encounter for therapeutic drug level monitoring (principal); F11.20 Opioid dependence, uncomplicated | CPT/HCPCS: 80305; 99212 ==